=== PATIENT | male | born 1940 | race Caucasian/White ===

== ENCOUNTER 2017-08-01 13:12 | Outpatient (CLI) | payer MEDICARE ==
[2017-08-01 14:15] LABS: #Basophils 0.1 thou/uL (0.0-0.2); #Eosinphils 0.3 thou/uL (0.0-0.7); #Monocytes 0.5 thou/uL (0.11-0.59); #Neutrophils 3.8 thou/uL (1.40-6.50); %Basophils 1.4 % (0.0-1.0); %Eosinophils 4.5 % (0.0-10.0); %Lymphocytes 29.8 % (21.0-51.0); %Monocytes 7.2 % (0.0-10.0); Hematocrit 39.2 % (42.0-52.0); Mean Platelet Volume 7.9 fL (7.4-10.4); Red Blood Cell (RBC) Count 4.56 mill/uL (4.70-6.10); White Blood Cell (WBC) Count 6.7 thou/uL (4.8-10.8)
[2017-08-01 14:45] LABS: Anion Gap 14 mmol/L (10-20); BUN (Urea Nitrogen) 41 mg/dL (8.4-25.7); Calc. Creatinine Clearance 0 mL/min (70-130); Calcium 9.5 mg/dL (7.8-10.44); Carbon Dioxide 24 mmol/L (23-31); Chloride 105 mmol/L (98-107); Estimated GFR-MDRD 39
== END 2017-08-01 13:13 | disposition home or self-care (01) ==
LOC: LABBT 13:12
PROVIDERS: ATTEND Orthopaedic Surgery
DX: Z01.818 Encounter for other preprocedural examination (principal); G56.02 Carpal tunnel syndrome, left upper limb
CPT/HCPCS: 80048; 85025; 93005; 93010

== ENCOUNTER 2017-08-12 07:06 | Day surgery (SDC) | payer MEDICARE ==
[2017-08-01 13:33] VITALS: BMI 25.1
[2017-08-12] MEDS ORDERED: Clindamycin/D5W 600 mg/50 ml Premix Bag ONE (08:32)
[2017-08-12] MEDS ORDERED: Meperidine HCl/PF 25 MG/ML VIAL ONE (08:54)
[2017-08-12] MEDS ORDERED: Lidocaine 1% w/Epinephrine 1:200K 30 ML VIAL ONE (08:58)
[2017-08-12] MEDS ORDERED: ePHEDrine/0.9% NaCl/PF SYRINGE 50 mg/10 ml ONE ×2 (09:26→15:32)
[2017-08-12] MEDS ORDERED: EPINEPHrine 1 MG/10 ML Abboject SYRINGE ONE (09:26)
--- NOTE | 2017-08-12 09:34 | OP ---
PREOPERATIVE DIAGNOSIS: Carpal tunnel, left. POSTOPERATIVE DIAGNOSIS: Carpal tunnel, left. SURGEON: Kj Fernandez M.D. ANESTHESIA: TIVA local. BLOOD LOSS: Minimal. SPECIMEN: None. DRAINS: None. COMPLICATIONS: None. PROCEDURE IN DETAIL: After appropriate consent was obtained, the patient was taken to the operating room where TIVA anesthesia was induced. The arm was prepped and draped in the sterile fashion. The ar m was exsanguinated. The tourniquet was inflated to 250 mmHg. A longitudinal incision was made. Hem ostasis obtained. Dissection was carried down to the transverse carpal ligament. The transverse carpa l ligament was incised. Hemostat was placed deep in the transverse carpal ligament. The knife was use d to cut down unto the ligament and hemostat. Care was taken to protect the contents of the carpal ca nal. Attention was then turned proximally. Metzenbaum scissors were used to release the carpal ligame nt into the forearm fascia. The carpal tunnel was palpated. There were no masses. The tourniquet was released. Hemostasis was obtained. Copious irrigation performed. The skin was closed with 4-0 Nylon. A sterile dressing was applied and the patient was placed in a splint. There are no complications.
[2017-08-12] MEDS ORDERED: Metoprolol Tartrate 5 MG/5 ML VIAL ONE (15:32)
[2017-08-12] MEDS ORDERED: Propofol 200 MG/20 ML VIAL ONE (15:32)
[2017-08-12] MEDS ORDERED: Ondansetron HCl/PF 4 MG/2 ML Vial ONE (15:32)
== END 2017-08-12 10:20 | disposition home or self-care (01) ==
LOC: SDC 07:06
PROVIDERS: ATTEND Orthopaedic Surgery
PROC: 01N50ZZ Release Median Nerve, Open Approach (ICD-10-PCS; principal; 2017-08-12)
DX: G56.02 Carpal tunnel syndrome, left upper limb (principal); I25.10 Atherosclerotic heart disease of native coronary artery without angina pectoris; M19.90 Unspecified osteoarthritis, unspecified site; E78.00 Pure hypercholesterolemia, unspecified; I10 Essential (primary) hypertension; E11.9 Type 2 diabetes mellitus without complications; Z79.84 Long term (current) use of oral hypoglycemic drugs; Z79.1 Long term (current) use of non-steroidal anti-inflammatories (NSAID); Z79.899 Other long term (current) drug therapy; Z98.52 Vasectomy status; Z90.49 Acquired absence of other specified parts of digestive tract; Z98.890 Other specified postprocedural states; Z87.442 Personal history of urinary calculi; Z96.653 Presence of artificial knee joint, bilateral; Z88.1 Allergy status to other antibiotic agents
CPT/HCPCS: J0171; J2175; J2405; J2704; J3490

== ENCOUNTER 2018-08-10 20:22 | Inpatient (IN) | payer MEDICARE ==
[~2018-08-10 20:22] MED LIST: Iopamidol 370 76% 100 ML VIAL ONE
[2018-08-10] MEDS ORDERED: KETAMINE 100 MG/ML (5ML VIAL) ONE (20:30)
[2018-08-10] MEDS ORDERED: Lidocaine 1% w/Epinephrine 1:100K 20 ML VIAL ONE (20:33)
[2018-08-10] MEDS ORDERED: Ondansetron ODT 4 MG TAB PO PRN (20:55)
[2018-08-10] MEDS ORDERED: Ondansetron PF 4 MG/2 ML Vial IVP PRN (20:55)
[2018-08-10] MEDS ORDERED: Dextrose 50% Abboject 50 ML SYRINGE SLOW IVP PRN (20:55)
[2018-08-10] MEDS ORDERED: hydrALAZINE 20 MG/ML VIAL SLOW IVP PRN (20:55)
[2018-08-10] MEDS ORDERED: Dextrose 5% in Water 1,000 ML IV PRN (20:55)
[2018-08-10 21:00] LABS: #Basophils 0.1 thou/uL (0.0-0.2); #Eosinphils 0.1 thou/uL (0.0-0.7); #Lymphocytes 1.6 thou/uL (1.20-3.40); #Monocytes 0.8 thou/uL (0.11-0.59); #Neutrophils 9.7 thou/uL (1.40-6.50); %Basophils 0.5 % (0.0-1.0); %Eosinophils 0.9 % (0.0-10.0); %Lymphocytes 13.2 % (21.0-51.0); %Monocytes 6.6 % (0.0-10.0); %Neutrophils 78.8 % (42.0-75.0); Hemoglobin 13.6 g/dL (14.0-18.0); Mean Corpuscular HGB CONC 33.3 g/dL (32.0-36.0); Mean Corpuscular Hemoglobin 28.8 pg (27.0-31.0); Mean Corpuscular Volume 86.4 fL (78.0-98.0); Platelet Count 206 thou/uL (130-400); RBC Distribution Width 12.6 % (11.5-14.5); Red Blood Cell (RBC) Count 4.72 mill/uL (4.70-6.10); White Blood Cell (WBC) Count 12.3 thou/uL (4.8-10.8)
[2018-08-10] MEDS ORDERED: Rib Fracture Protocol PO SCH (21:00)
[2018-08-10 21:07] LABS: PTT 20.8 SEC (22.9-36.1); Prothrombin Time 13.6 SEC (12.0-14.7)
--- NOTE | 2018-08-10 21:12 | RAD ---
RADIOGRAPH CHEST 1 VIEW: Date: 08/10/18 Time: 8:31 p.m. HISTORY: 78-year-old male with chest pain and dyspnea following trauma. Dr. Da Silva is aware of the pneumothorax and is currently in the process of playing a chest tube. COMPARISON: 07/11/11. FINDINGS: There is a new finding of right apical pneumothorax occupying approximately 15-20% volume of the righ t hemithoracic cavity. The lungs are hypoinflated. There are small pulmonary densities in the right p erihilar region and at the right lateral base, probably representing mild atelectasis. There is anoth er new finding of subcutaneous emphysema in the right lateral chest wall. The left lung is clear. IMPRESSION: 1. Acute, traumatic, right apical pneumothorax. 2. Acute, traumatic, subcutaneous emphysema of the right chest wall. JN [] POS: [facility]
[2018-08-10 21:21] LABS: ALT (SGPT) 36 U/L (8-55); AST (SGOT) 50 U/L (5-34); Albumin 4.6 g/dL (3.4-4.8); Alkaline Phosphatase 71 U/L (40-150); Anion Gap 14 mmol/L (10-20); BUN (Urea Nitrogen) 51 mg/dL (8.4-25.7); Bilirubin, Total 0.8 mg/dL (0.2-1.2); Calc. Creatinine Clearance 0 mL/min (70-130); Calcium 9.6 mg/dL (7.8-10.44); Carbon Dioxide 23 mmol/L (23-31); Chloride 104 mmol/L (98-107); Estimated GFR-MDRD 34; Globulin 2.8 g/dL (2.4-3.5); Glucose 346 mg/dL (83-110); Lipase 57 U/L (8-78); Potassium 5.1 mmol/L (3.5-5.1); Protein, Total 7.4 g/dL (5.8-8.1); Sodium 136 mmol/L (136-145)
--- NOTE | 2018-08-10 21:24 | RAD ---
PORTABLE CHEST: 08/10/18 HISTORY: Post chest tube placement. COMPARISON: Earlier exam the same day. Heart size is enlarged. Right sided chest tube is in place. The right sided pneumothorax is almost co mpletely resolved. There appears to be a tiny apical pneumothorax remaining. The tip of the chest tub e is in the right lung apex. Subcutaneous emphysema noted. IMPRESSION: 1. Almost complete resolution of the right sided pneumothorax. 2. Cardiomegaly. POS: [facility]
--- NOTE | 2018-08-10 21:36 | CT ---
CT OF CHEST AND ABDOMEN PERFORMED WITH INTRAVENOUS CONTRAST: 08/10/18 HISTORY: Patient thrown against a cement truck into a metal pole. Pain on right side. The left lung shows subsegmental atelectatic change in the left base. The thoracic aorta is normal in caliber. No signs of any mediastinal hematoma. On the right side there is moderate subcutaneous emphysema. A right chest tube is present with the ti p in the right lung apex. There is still a small anterior pneumothorax present. There are right sided rib fractures with a right posterior 10th rib fracture near the costovertebral junction and a segmen brian posterior 9th rib fracture and lateral 8th rib fracture. CT OF ABDOMEN PERFORMED WITH CONTRAST ENHANCEMENT: The liver, spleen, and pancreas regions appear unremarkable. Gallbladder has been removed. Right and left adrenal glands are normal. There is an approximately 15 mm upper pole right renal calc ulus. This is nonobstructing. The kidneys show no signs of any injury. No free fluid seen in the abdo men. CT THORACIC SPINE WITH CONTRAST: Marked arthritic changes are seen. No compression fractures. IMPRESSION: Right 8th, 9th and 10th rib fractures. A small residual right pneumothorax is seen with a right chest tube in place. Moderate atelectatic changes are seen in the right lung base. The findings telephoned to Dr. Da Silva at 2120 hours. POS: [facility]
[2018-08-10] MEDS: Famotidine 20 MG TAB PO SCH (22:56)
[2018-08-10] MEDS: Sodium Chloride 0.9% 1,000 ML IV SCH (22:58)
[2018-08-10 23:17] VITALS: BMI 25.8
[2018-08-10] MEDS ORDERED: Cyclobenzaprine 10 MG TAB PO PRN (23:30)
[2018-08-10] MEDS: traMADol HCl 50 MG TAB PO SCH (23:37)
[2018-08-11] MEDS: traMADol HCl 50 MG TAB PO SCH ×4 (02:15→17:12)
[2018-08-11] MEDS: Ibuprofen 600 MG TAB PO SCH ×3 (05:36→21:35)
[2018-08-11 06:09] LABS: #Eosinphils 0.1 thou/uL (0.0-0.7); #Lymphocytes 1.1 thou/uL (1.20-3.40); #Monocytes 0.6 thou/uL (0.11-0.59); #Neutrophils 7.1 thou/uL (1.40-6.50); %Basophils 0.1 % (0.0-1.0); %Eosinophils 0.7 % (0.0-10.0); %Lymphocytes 12.3 % (21.0-51.0); %Monocytes 7.1 % (0.0-10.0); %Neutrophils 79.8 % (42.0-75.0); Hemoglobin 10.9 g/dL (14.0-18.0); Mean Corpuscular HGB CONC 33.1 g/dL (32.0-36.0); Mean Corpuscular Hemoglobin 28.5 pg (27.0-31.0); Mean Corpuscular Volume 86.2 fL (78.0-98.0); Mean Platelet Volume 8.8 fL (7.4-10.4); Platelet Count 160 thou/uL (130-400); RBC Distribution Width 12.6 % (11.5-14.5); Red Blood Cell (RBC) Count 3.83 mill/uL (4.70-6.10); White Blood Cell (WBC) Count 8.9 thou/uL (4.8-10.8)
[2018-08-11 06:29] LABS: Anion Gap 13 mmol/L (10-20); BUN (Urea Nitrogen) 44 mg/dL (8.4-25.7); Calc. Creatinine Clearance 42 mL/min (70-130); Carbon Dioxide 23 mmol/L (23-31); Chloride 106 mmol/L (98-107); Estimated GFR-MDRD 43; Glucose 313 mg/dL (83-110); Magnesium 2.2 mg/dL (1.6-2.6); Phosphorus 3.3 mg/dL (2.3-4.7); Potassium 4.7 mmol/L (3.5-5.1)
[2018-08-11 06:43] LABS: Sodium 137 mmol/L (136-145)
--- NOTE | 2018-08-11 07:44 | HP ---
TRAUMA SURGEON: Izaiah easton MD TRAUMA ACTIVATION: Level II. HISTORY OF PRESENT ILLNESS: Mr. Isaac Ferro is a 78-year-old gentleman, who presented to [place] [facility] status post blunt force trauma to the back and chest. 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 His shovel got caught causing him to be slammed up against metal pole. This happened the morning prior to his presentation in the emergency room. The patient had increasing shortness of breath, cough, and right-sided back pain, therefore he came to the emergency room. He was seen and evaluated in the emergency room and found to have multiple right-sided rib fractures, evidence of a flail chest with a hemopneumothorax. A chest tube was placed by the emergency room physician. There was good re-expansion of the lung. Trauma Service was asked to admit. Per my evaluation, the patient has a chief complaint of right shoulder and back pain, rated as a 5/10. This has improved from a 10/10. ALLERGIES: CEFTIN. HOME MEDICATIONS: Include, 1. Lisinopril 10 mg p.o. daily. 2. Meloxicam 15 mg p.r.n. 3. Glimepiride 2 mg q.a.m. and 4 mg nightly. CHRONIC MEDICAL ILLNESSES: 1. Diabetes. 2. Hyperlipidemia. 3. Hypertension. PAST SURGICAL HISTORY: The patient has a history of bilateral knee replacements, left shoulder rotator cuff repair, and right carotid endarterectomy. SOCIAL HISTORY: The patient lives at home with his . 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 Endorses occasional alcohol use. Denies tobacco or illicit drug use. FAMILY HISTORY: Significant for father with metastatic lung cancer. REVIEW OF SYSTEMS: A 10-point review of systems was performed and negative except as indicated in the HPI. PHYSICAL EXAMINATION: VITAL SIGNS: On evaluation include heart rate 76, O2 saturation 97% on 3 L nasal cannula, respiratory rate 22, blood pressure 150/80. GENERAL: An elderly-appearing male, in no acute distress, resting in bed. HEENT: Head, normocephalic and atraumatic. Eyes, pupils are PERRL. Extraocular movements are intact. NECK: Supple. Trachea is midline. There is no midline tenderness to palpation. CHEST: Normal work of breathing. Symmetric rise. There is tenderness to palpation of the right lateral chest. LUNGS: Clear to auscultation bilaterally. CARDIOVASCULAR: Regular rate and rhythm. No obvious, murmurs, rubs or gallops. GI: Abdomen is soft, nontender, and nondistended. MUSCULOSKELETAL: Moves all extremities x4. Full range of motion in all 4 extremities. Pulses are 2+ bilaterally. NEUROLOGIC: GCS is 15. No focal deficit is noted. LABORATORY FINDINGS: WBC 12.3, hemoglobin 13.6, hematocrit 40.7, and platelet count 206. INR 1.0. Sodium 136, potassium 5.1, chloride 104, carbon dioxide 23, BUN 51, creatinine 1.90, and glucose 346. AST 50, ALT 36. Troponin 0.012. RADIOGRAPHIC FINDINGS: X-ray of the chest was significant for apical pneumothorax. Post chest tube x-ray demonstrated proper placement of the chest tube with resolution of the pneumothorax. CT of the chest was significant for right 8th, 9th, and 10th posterolateral rib fractures. ASSESSMENT: 1. Status post blunt force trauma to the back and chest. 2. Right 8th, 9th, and 10th rib fractures. 3. Right hemopneumothorax. 4. Acute respiratory insufficiency secondary to above. 5. Acute traumatic pain. 6. History of diabetes with hyperglycemia. 7. History of hypertension. PLAN: Admit to Trauma Services. Pain control via rib fracture protocol PO pathway. Chest tube placed to suction overnight. A.m. chest x-ray. Encouraging mobility and ambulation. Per the patient, he gets significantly constipated with the use of narcotic pain medications, we will add bowel regimen as this time. Sliding scale insulin until the patient is taking good p.o. intake. Plan for admission was discussed with the patient and family at bedside and all questions were answered at the time of this dictation. Trauma attending has been notified of admission. Job ID: [id number]
--- NOTE | 2018-08-11 09:04 | RAD ---
SEMI UPRIGHT PORTABLE CHEST ONE VIEW: History: 78-year-old male with history of pneumothorax, rib fracture. Follow up. FINDINGS: Right sided chest tube in place. Very small residual right sided pneumothorax with some subcutaneous emphysema on the right side. Mild cardiomegaly. Stable left chest. Left costophrenic angle blunting s uggesting small left pleural effusion. Arthrosis changes both shoulders. Subtle displaced right rib f ractures. IMPRESSION: Small stable right sided pneumothorax with right chest tube in place. Right sided subcutaneous emphys char. Atherosclerosis of the aorta. Small pleural effusions. POS: [facility]
[2018-08-11] MEDS ORDERED: HumaLOG 300 UNITS/3 ML VIAL SC PRN (09:26)
[2018-08-11] MEDS ORDERED: Dextrose 5% in Water 1,000 ML IV PRN (09:26)
[2018-08-11] MEDS ORDERED: Dextrose 50% Abboject 50 ML SYRINGE SLOW IVP PRN (09:26)
[2018-08-11] MEDS: Gabapentin 100 MG CAP PO SCH ×3 (09:33→21:34)
[2018-08-11] MEDS: HumaLOG 300 UNITS/3 ML VIAL SC PRN ×3 (09:33→17:13)
[2018-08-11] MEDS: Polyethylene Glycol 3350 17 GM Packet PO SCH (09:33)
[2018-08-11] MEDS: Famotidine 20 MG TAB PO SCH ×2 (09:33→21:34)
[2018-08-11] MEDS: Senokot S 8.6-50 MG TAB PO SCH ×2 (09:33→21:34)
[2018-08-11] MEDS: Enoxaparin Sodium 40 MG/0.4 ML SYRINGE SC SCH (09:33)
[2018-08-11] MEDS: Acetaminophen 500 MG TAB PO SCH ×2 (11:48→17:12)
[2018-08-11] MEDS: Sodium Chloride 0.9% 1,000 ML IV SCH (12:02)
--- NOTE | 2018-08-11 13:34 | HP ---
CHIEF COMPLAINT: Chest pain, right side. 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 He says, he put in a paddle to try and mix the gravel when it got caught and hit him, flinging him to his right side against a rigid metal fence and sustained severe right chest pain. Denies any abdominal pain. No dyspnea. No loss of consciousness. No head pain. No neurologic symptoms. PAST MEDICAL HISTORY: 1. Diabetes. 2. Hypertension. 3. Hyperlipidemia. PAST SURGICAL HISTORY: 1. Bilateral total knee. 2. Left shoulder surgery. 3. Right carotid endarterectomy. 4. Open cholecystectomy. MEDICATIONS: 1. Lisinopril. 2. Meloxicam. 3. Glyburide. 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 FAMILY HISTORY: Lung cancer. ALLERGIES: HE HAS AN ALLERGY TO CEFUROXIME AXETIL. PHYSICAL EXAMINATION: VITAL SIGNS: Temperature 98.2, pulse 69, and blood pressure 148/67. GENERAL: He is awake and alert, in no apparent distress. HEENT: He has his glasses on and he is watching a football game, reading the newspaper. He wears glasses. Pupils equal, round, reactive. Extraocular movement intact. Pharynx clear. Good dentition. NECK: Supple. No thyroid masses. Trachea midline. No tenderness. CHEST: He has a chest tube in right chest. LUNGS: Clear. ABDOMEN: Soft and nondistended. He has well-healed surgical scar, right subcostal. EXTREMITIES: Unremarkable. LABORATORY DATA: His white count is 8.9, H and H 10 and 33, and platelet count 160. Electrolytes show an elevated glucose at 313. Chest x-ray shows pneumothorax with subcutaneous emphysema. CT shows right 8, 9, and 10 rib fractures and right pneumo. ASSESSMENT: Multiple rib fractures with pneumothorax. PLAN: Suction. Serial x-rays. Sliding scale for sugars. Job ID: [id number]
--- NOTE | 2018-08-11 17:48 | PRG ---
DATE OF SERVICE: 08/11/2018 SUBJECTIVE: Isaac Ferro is doing well. He has no complaints. He is ambulating in the hallways. OBJECTIVE: VITAL SIGNS: Heart rate 68, respirations 20, and blood pressure 150/72. LUNGS: Clear to auscultation. CARDIAC: Regular rate and rhythm without murmur or gallop. ABDOMEN: Soft and nontender. Chest x-ray reveals resolved pneumothorax. No significant pneumothorax. IMAGING STUDIES: Chest x-ray this morning as above. ASSESSMENT AND PLAN: Right hemopneumothorax. Continue to thoracostomy water-seal. PLAN: Removal if his chest x-ray looks good tomorrow. I anticipate discharge home later tomorrow. Job ID: [id number]
[2018-08-11] MEDS ORDERED: Glimepiride 1 MG TAB PO SCH (21:00)
[2018-08-11] MEDS: Atorvastatin Calcium 20 MG TAB PO SCH (21:34)
[2018-08-11] MEDS: Glimepiride 4 MG TAB PO SCH (21:34)
[2018-08-12] MEDS: Acetaminophen 500 MG TAB PO SCH ×4 (00:47→17:36)
[2018-08-12] MEDS: traMADol HCl 50 MG TAB PO SCH ×4 (00:48→17:36)
[2018-08-12] MEDS: Sodium Chloride 0.9% 1,000 ML IV SCH ×2 (00:49→14:22)
[2018-08-12 06:25] LABS: #Eosinphils 0.5 thou/uL (0.0-0.7); #Monocytes 0.6 thou/uL (0.11-0.59); #Neutrophils 4.4 thou/uL (1.40-6.50); %Basophils 0.4 % (0.0-1.0); %Eosinophils 6.4 % (0.0-10.0); %Lymphocytes 26.9 % (21.0-51.0); %Monocytes 8.1 % (0.0-10.0); %Neutrophils 58.1 % (42.0-75.0); Hemoglobin 10.4 g/dL (14.0-18.0); Mean Corpuscular Hemoglobin 28.8 pg (27.0-31.0); Mean Corpuscular Volume 87.3 fL (78.0-98.0); Mean Platelet Volume 8.7 fL (7.4-10.4); Platelet Count 156 thou/uL (130-400); RBC Distribution Width 12.6 % (11.5-14.5); Red Blood Cell (RBC) Count 3.62 mill/uL (4.70-6.10); White Blood Cell (WBC) Count 7.5 thou/uL (4.8-10.8)
[2018-08-12] MEDS: Ibuprofen 600 MG TAB PO SCH ×3 (06:36→20:55)
[2018-08-12 07:03] LABS: Anion Gap 12 mmol/L (10-20); BUN (Urea Nitrogen) 46 mg/dL (8.4-25.7); Calc. Creatinine Clearance 35 mL/min (70-130); Calcium 8.8 mg/dL (7.8-10.44); Carbon Dioxide 22 mmol/L (23-31); Chloride 107 mmol/L (98-107); Estimated GFR-MDRD 35; Glucose 83 mg/dL (83-110); Magnesium 2.6 mg/dL (1.6-2.6); Phosphorus 4.6 mg/dL (2.3-4.7); Potassium 4.5 mmol/L (3.5-5.1); Sodium 136 mmol/L (136-145)
--- NOTE | 2018-08-12 08:04 | RAD ---
PORTABLE CHEST: DATE: 08/12/2018. PROVIDED CLINICAL HISTORY: Pneumothorax. FINDINGS: Comparison 08/11/2018. Cardiac and mediastinal silhouette is unchanged in appearance. Right-sided ch est tube is redemonstrated in similar position. Residual pneumothorax is not definite seen on today' s study, though the right lung apex is somewhat obscured by overlying soft tissues. The lungs appear grossly clear. IMPRESSION: No definite residual pneumothorax is evident with limitations as above. POS: [facility]
[2018-08-12] MEDS: Polyethylene Glycol 3350 17 GM Packet PO SCH (09:19)
[2018-08-12] MEDS: Glimepiride 4 MG TAB PO SCH ×2 (09:19→20:55)
[2018-08-12] MEDS: Senokot S 8.6-50 MG TAB PO SCH ×2 (09:19→20:55)
[2018-08-12] MEDS: Gabapentin 100 MG CAP PO SCH ×3 (09:20→20:55)
[2018-08-12] MEDS: Enoxaparin Sodium 40 MG/0.4 ML SYRINGE SC SCH (09:20)
[2018-08-12] MEDS: Famotidine 20 MG TAB PO SCH ×2 (09:20→20:55)
--- NOTE | 2018-08-12 12:59 | PRG ---
DATE OF SERVICE: SUBJECTIVE: Mr. Ferro is awake and alert, resting comfortably in bed. Has been up and walking around. He has no complaints at this time. Reports pain has been controlled. No events overnight. Reports his appetite has been good. Reports, he still has not had a bowel movement. He continues to use his incentive spirometer, able to deep breathe and cough. OBJECTIVE: VITAL SIGNS: Blood pressure 123/67, temp 98.7, pulse 64, respirations 18, SpO2 94% on room air. GENERAL: The patient is awake and alert, no distress. RESPIRATORY: The patient has equal chest rise and fall. No cyanosis. No tachypnea. CARDIOVASCULAR: No edema. Regular rate and rhythm. NEUROLOGIC: No acute focal deficits. LABORATORY DATA: WBC 7.5, RBC 3.62, hemoglobin 10.4, hematocrit 31.6. Sodium 136, potassium 4.5, chloride 107, CO2 22, BUN 46, creatinine 1.89, glucose 182. Chest x-ray reveals resolved pneumothorax, no significant pneumothorax. ASSESSMENT: 1. Right resolved hemopneumothorax with chest tube to water seal. 2. Acute traumatic pain. PLAN: We will remove his chest tube today. Anticipate discharge home in the morning. We will repeat a chest x-ray tomorrow morning before we discharge him home. Continue use of IS. Continue bowel regimen as the patient has not had a bowel movement yet. Encourage to get up and ambulate. Continue pain management. Continue physical therapy. Plan has been discussed with the admitting surgeon. Job ID: [id number] MTDD
[2018-08-12] MEDS: Atorvastatin Calcium 20 MG TAB PO SCH (20:54)
[2018-08-13] MEDS: HumaLOG 300 UNITS/3 ML VIAL SC PRN (00:04)
[2018-08-13] MEDS: traMADol HCl 50 MG TAB PO SCH ×2 (00:06→06:16)
[2018-08-13] MEDS: Acetaminophen 500 MG TAB PO SCH ×2 (00:06→06:15)
[2018-08-13] MEDS: Sodium Chloride 0.9% 1,000 ML IV SCH (04:29)
[2018-08-13] MEDS: Ibuprofen 600 MG TAB PO SCH (06:16)
--- NOTE | 2018-08-13 07:58 | RAD ---
PORTABLE CHEST: DATE: 08/13/2018. PROVIDED CLINICAL HISTORY: Pneumothorax. FINDINGS: Comparison is made with the study dated 08/12/2018. Interval removal of right-sided chest tube. No e vidence for residual pneumothorax. Nonspecific airspace disease right mid lung zone. Subcutaneous e mphysema. Cardiomegaly. No evidence for pleural fluid. IMPRESSION: 1. Interval right-sided chest tube removal without evidence for residual pneumothorax. 2. Patchy right mid lung zone airspace disease. Followup recommended. POS: [facility]
[2018-08-13] MEDS: Famotidine 20 MG TAB PO SCH (08:20)
[2018-08-13] MEDS: Glimepiride 4 MG TAB PO SCH (08:21)
[2018-08-13] MEDS: Gabapentin 100 MG CAP PO SCH (08:22)
[2018-08-13] MEDS: Enoxaparin Sodium 40 MG/0.4 ML SYRINGE SC SCH (08:22)
[2018-08-13] MEDS: Polyethylene Glycol 3350 17 GM Packet PO SCH (08:23)
[2018-08-13] MEDS: Senokot S 8.6-50 MG TAB PO SCH (08:23)
[2018-08-13 10:57] VITALS: BP 137/71; TEMP 98.9
--- NOTE | 2018-08-15 00:08 | DIS ---
DATE OF ADMISSION: 08/10/2018 DATE OF DISCHARGE: 08/13/2018 DISCHARGE ATTENDING: Andrew Rodas MD CONSULTS: There were no consults. PROCEDURES: 1. Chest CT on 08/10/2018, impression, right 8th, 9th, and 10th rib fractures. A small residual right pneumothorax seen with a right chest tube in place. Moderate atelectatic changes are seen in the right lung base. 2. CT of thoracic spine with contrast, marked arthritic changes are seen. No compression fractures. 3. CT of abdomen, the liver, spleen, and pancreas regions appear unremarkable. 4. Chest x-ray on 08/10 prior to chest tube placement showed an acute traumatic right apical pneumothorax, acute traumatic subcutaneous emphysema of the right chest wall. 5. Repeat chest x-ray on 08/11/2018, impression, small stable right-sided pneumothorax with right chest tube in place, right-sided subcutaneous emphysema with small pleural effusions. 6. Chest x-ray on 08/12/2018, impression, no definite residual pneumothorax is evident. 7. Repeat chest x-ray on 08/13/2018, right-sided chest tube removed without evidence of residual pneumothorax, patchy right mid lung zone airspace disease. PRIMARY DIAGNOSES: 1. Traumatic hemopneumothorax. 2. Multiple right rib fractures. SECONDARY DIAGNOSES: 1. Diabetes. 2. Hyperlipidemia. 3. Hypertension. ALLERGIES: CEFTIN. HOME MEDICATIONS: Include; 1. Lisinopril 10 mg p.o. daily. 2. Meloxicam 15 mg p.r.n. 3. Glimepiride 2 mg q.a.m. and 4 mg nightly. PAST MEDICAL HISTORY: Hypertension, Type 2 diabetes, Hyperlipidemia. PAST SURGICAL HISTORY: Bilateral knee replacement, Left shoulder rotator cuff repair, and Right carotid endarterectomy. FAMILY HISTORY: Significant for father with metastatic lung cancer. SOCIAL HISTORY: The patient lives at home with his . 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 Occasional alcohol use. Denies tobacco or illicit drug use. DISCHARGE MEDICATIONS: 1. Tylenol 1000 mg p.o. q.6 hours. 2. Glimepiride 1 mg tablet p.o. at bedtime. 3. Atorvastatin calcium 20 mg p.o. q.p.m. 4. Lisinopril 10 mg p.o. daily. 5. Meloxicam 15 mg tablet daily. 6. Tramadol 100 mg p.o. q 6 hours for pain There were no home medications that were discontinued. HISTORY OF PRESENT ILLNESS AND HOSPITAL COURSE: A 78-year-old gentleman, who initially presented to the emergency room status post blunt force trauma to the back and chest. 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 His shovel got caught causing him to be slammed up against a metal pole. The patient was evaluated in the emergency room and was found to have multiple rib fractures and evidence of a flail chest with a hemopneumothorax. A chest tube was placed in the emergency room with good re-expansion of the lung. Trauma service was asked to admit. The patient ambulated the hallways without any difficulty, used his incentive spirometer without any difficulty. The patient's vital signs remained stable throughout the hospital stay and the day of discharge. There was no evidence of residual pneumo on his chest x-ray. The patient's pain was well controlled. The patient did have a bowel movement yesterday. When the pt was lying in bed initially on exam he had some faint audible expiratory wheezing sounds which resolved after sitting up. When asked about this the patient said that is normal for him sometimes a it occasionally happens every once in a while, and he is able to take a throat lozenge and it resolves. The patient was in no distress. The patient denied any pain or shortness of breath. The patient denied any cough at this time. Vital sign were stable. The patient was deemed stable for discharge. DISPOSITION: Stable. DISCHARGE INSTRUCTIONS: Location: Discharged home. Diet: Diabetic diet. Activity: No heavy lifting. Activity as tolerated. FOLLOWUP: Follow up with trauma clinic, Dr. Mccullough, in 14 days. Chest x-ray to be obtained prior to appointment. Call the clinic to arrange an appointment time. The patient was discussed with the attending surgeon. Job ID: [id number] [facility]
--- NOTE | 2018-08-17 16:19 | PQF ---
INDU BUSH RAMONA PA [id number] [facility] B- [id number] CLINICAL DOCUMENTATION CLARIFICATION FORM: POST DISCHARGE Addendum to original discharge summary date: ____ Late entry note date: __ DATE: 08/17/18 ATTN: DR. ORTEGA Please exercise your independent, professional judgment in responding to the clarification form. Clinical indicators are provided on the bottom of this form for your review Please check appropriate box(s): [ ] Acute Respiratory Failure: [ ] with Hypoxia[ ] with Hypercapnia [ ] Acute On Chronic Respiratory Failure: [ ] with Hypoxia [ ] with Hypercapnia [ ] Acute Respiratory Failure due to: (etiology) [X ] Other diagnosis _Acute respiratory insufficiency (unable to determine if failure at the time of admission as there were no documented sats off O2) [ ] Unable to determine In addition, please specify: Present on Admission (POA): [ X ] Yes [ ] No [ ] Unable to determine For continuity of documentation, please document condition throughout progress notes and discharge summary. Thank You. CLINICAL INDICATORS - SIGNS / SYMPTOMS / LABS: 08/10 ER report - Vitals: Resp rate: 24 (labored), O2 sat: 95 on 2L Oxygen 08/10 H&P - Vitals: Resp rate: 22, O2 saturation 97% on 3L nasal cannula 08/10 H&P - Acute respiratory insufficiency RISK FACTORS: Chest trauma Multiple rib fractures TREATMENTS: 08/10 - Chest XR Incentive spirometer Oxygen (This form is maintained as a part of the permanent medical record) 2014 [employer]. All Rights Reserved [place], NELDA, [facility] [email or web address] [phone] CHRISTOPHER
== END 2018-08-13 12:40 | disposition home or self-care (01) | DRG 199 ==
LOC: ERS 20:22 → SURG B 20:55
PROVIDERS: ADMIT Surgery; ATTEND Surgery
PROC: 0W9930Z Drainage of Right Pleural Cavity with Drainage Device, Percutaneous Approach (ICD-10-PCS; principal; 2018-08-10)
DX: S27.2XXA Traumatic hemopneumothorax, initial encounter (principal); S22.5XXA Flail chest, initial encounter for closed fracture; W22.8XXA Striking against or struck by other objects, initial encounter; Y92.79 Other farm location as the place of occurrence of the external cause; I10 Essential (primary) hypertension; E11.9 Type 2 diabetes mellitus without complications; E78.5 Hyperlipidemia, unspecified; Z23 Encounter for immunization; R06.89 Other abnormalities of breathing
CPT/HCPCS: 32551; 36415; 36416; 71045; 71260; 80048; 80053; 83690; 83735; 84100; 84484; 85025; 85610; 85730; 86850; 86900; 86901; 90471; 90662; 94640; 99152; 99292; G0008; G8978-GP-CJ; G8979-GP-CJ; G8980-GP-CJ; G8987-GO-CI; G8988-GO-CI; G8989-GO-CI; J1650; J2001; J2405; J7620; Q0162

== ENCOUNTER 2018-08-13 18:06 | Inpatient (IN) | payer MEDICARE ==
--- NOTE | 2018-08-13 19:45 | RAD ---
PA AND LATERAL CHEST X-RAY: 08/13/2018 HISTORY: Persistent coughing. Patient with a history of broken right-sided ribs and pneumothorax. COMPARISON: 08/13/2018 at 0453 hours. FINDINGS: Again noted is subcutaneous emphysema along the right lateral chest and in the supraclavicular region . Surgical clips again overly the right aspect of the neck and the right upper quadrant. Posterior right-sided rib fractures are again seen. Again noted is volume loss involving the right h emithorax, with mild elevation of the right hemidiaphragm. There has been a mild increase in the ple ural and parenchymal changes at the right lung base compared to the prior study, which may represent small right pleural effusion and worsening atelectasis. Minimal atelectasis is present at the left l beth base. The left lung is otherwise clear. No pneumothorax is visualized on this exam. 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 IMPRESSION: 1. Small right pleural effusion and greater degree of atelectasis at the right lung base, compared t o prior study. No pneumothorax is appreciated. 2. Stable right-sided rib fractures. 3. Subcutaneous emphysema along the right chest and right supraclavicular region. POS: [facility]
[2018-08-13] MEDS ORDERED: Albuterol Sulfate 2.5 mg/3 ml Neb ONE (20:57)
[2018-08-13 21:13] LABS: #Lymphocytes 0.8 thou/uL (1.20-3.40); #Monocytes 0.4 thou/uL (0.11-0.59); #Neutrophils 15.6 thou/uL (1.40-6.50); %Basophils 0.2 % (0.0-1.0); %Eosinophils 0.1 % (0.0-10.0); %Lymphocytes 4.5 % (21.0-51.0); %Monocytes 2.4 % (0.0-10.0); %Neutrophils 92.8 % (42.0-75.0); Hemoglobin 12.7 g/dL (14.0-18.0); Mean Corpuscular Hemoglobin 28.8 pg (27.0-31.0); Mean Corpuscular Volume 87.3 fL (78.0-98.0); Mean Platelet Volume 8.4 fL (7.4-10.4); Platelet Count 202 thou/uL (130-400); RBC Distribution Width 12.6 % (11.5-14.5); Red Blood Cell (RBC) Count 4.42 mill/uL (4.70-6.10); White Blood Cell (WBC) Count 16.8 thou/uL (4.8-10.8)
[2018-08-13 21:32] LABS: ALT (SGPT) 40 U/L (8-55); AST (SGOT) 28 U/L (5-34); Alkaline Phosphatase 62 U/L (40-150); Anion Gap 15 mmol/L (10-20); BUN (Urea Nitrogen) 46 mg/dL (8.4-25.7); Bilirubin, Total 0.6 mg/dL (0.2-1.2); Calc. Creatinine Clearance 0 mL/min (70-130); Calcium 9.4 mg/dL (7.8-10.44); Carbon Dioxide 22 mmol/L (23-31); Chloride 100 mmol/L (98-107); Estimated GFR-MDRD 33; Globulin 2.9 g/dL (2.4-3.5); Glucose 198 mg/dL (83-110); Potassium 5.8 mmol/L (3.5-5.1); Protein, Total 6.9 g/dL (5.8-8.1); Sodium 131 mmol/L (136-145)
[2018-08-13] MEDS ORDERED: Dextrose 5% in Water 1,000 ML IV PRN (21:59)
[2018-08-13] MEDS ORDERED: Dextrose 50% Abboject 50 ML SYRINGE SLOW IVP PRN (21:59)
[2018-08-13] MEDS ORDERED: hydrALAZINE 20 MG/ML VIAL SLOW IVP PRN (21:59)
[2018-08-13] MEDS ORDERED: Ondansetron PF 4 MG/2 ML Vial IVP PRN (21:59)
[2018-08-13] MEDS ORDERED: Ondansetron ODT 4 MG TAB PO PRN (21:59)
[2018-08-13] MEDS ORDERED: Rib Fracture Protocol PO SCH (22:00)
[2018-08-13] MEDS ORDERED: Morphine 2 MG/ML SYRINGE ONE ×2 (22:11→22:14)
[2018-08-13] MEDS ORDERED: Ondansetron PF 4 MG/2 ML Vial ONE ×2 (22:11→22:12)
[2018-08-13 22:19] LABS: Actual Bicarbonate (HCO3a) 17.6 mEq/L (22-28); Analyzer IN Cardio ER; Base Excess (BEa) -7.5 mEq/L (-2.0 to +3.0); CO2 Tension 34.3 mmHg (35.0-45.0); Calcium, Ionized 1.12 mmol/L (1.12-1.30); Carboxyhemoglobin (COHb) 0.4 gm% (0.0-3.0); Hemoglobin (Hb) 12.1 g/dL (14.0-18.0); Potassium - ABG Lab 4.62 mmol/L (3.70-5.30); pH, Arterial 7.33 (7.35-7.45)
[2018-08-13] MEDS ORDERED: Morphine 2 MG/ML SYRINGE SLOW IVP PRN (22:19)
[2018-08-13 22:23] LABS: ALV-art Gradient 51.255 (0-20); O2 Tension (PaO2) 55.6 mmHg (> 70.0); Puncture Site RRA
[2018-08-13] MEDS ORDERED: Cyclobenzaprine 10 MG TAB PO PRN (22:45)
[2018-08-13] MEDS ORDERED: Fentanyl 100 MCG/2 ML VIAL ONE (23:41)
[2018-08-14] MEDS ORDERED: Sodium Chloride 0.9% 1,000 ML IV SCH ×2 (00:45→12:45)
[2018-08-14] MEDS: Acetaminophen 500 MG TAB PO SCH ×5 (01:27→23:35)
[2018-08-14] MEDS: traMADol HCl 50 MG TAB PO SCH ×5 (01:27→23:35)
--- NOTE | 2018-08-14 01:27 | HP ---
HISTORY OF PRESENT ILLNESS: Mr. Ferro is a 78-year-old gentleman who was initially admitted on 08/10/2018 to Trauma Services status post traumatic hemo-pneumo with a chest tube placement to the right chest. Chest tube was removed yesterday and the patient was evaluated overnight and repeat chest x-ray revealed no hemo- pneumothorax. The patient was stable upon discharge and had been ambulating around the halls with pain well controlled. Shortly after going home, the patient started to coughing and wheezing which became worse throughout the day. Also his pain had increased as the coughing progressed which limited him to ambulating like he was previously. The patient also reports yellow productive sputum. His was concerned and brought him to the ER. He was evaluated by Dr. Farias who contacted Trauma Services to readmit the patient. The patient was started on Neb treatments with some improvement. PAST MEDICAL HISTORY: 1. Diabetes. 2. Hypertension. 3. Hyperlipidemia. PAST SURGICAL HISTORY: 1. Bilateral total knee. 2. Left shoulder surgery. 3. Right carotid endarterectomy. 4. Open cholecystectomy. MEDICATIONS: 1. Lisinopril. 2. Meloxicam. 3. Glyburide. 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 FAMILY HISTORY: Lung cancer. ALLERGIES: TO CEFUROXIME AXETIL. PHYSICAL EXAMINATION: VITAL SIGNS: Heart rate 114, temperature 100.7, respirations 28, and blood pressure 140/86. Sp02 92% on RA GENERAL: The patient is awake and alert, in mild respiratory distress with subclavicular retractions and mild expiratory wheezing. HEENT: Mucous membranes are dry, lips dry CARDIOVASCULAR: Sinus tachycardia. Regular rate and rhythm. No murmur. No pedal edema. RESPIRATORY: Slightly labored respirations, equal chest rise. Audible expiratory wheezing ABDOMEN: Slightly distended, soft, non tender. LABORATORY DATA: WBC 16.8, RBC 4.42, hemoglobin 12.7, hematocrit 38.6, neutrophils 92.8. ABGs; pH 7.33, PCO2 of 34.3, PO2 of 55.6, potassium on the ABG is 4.62. Chemistries; sodium 131, potassium 5.8, chloride 100, CO2 of 22, BUN 46, creatinine 1.96, glucose 198, calcium 9.4, AST 28, ALT 40, alkaline phosphatase 62, BNP 72.2, total protein 6.9, albumin 4.0, globulin 2.9, albumin 1.4. DIAGNOSTIC STUDIES: Chest x-ray; impression: 1. Small pleural effusion and greater degree of atelectasis at the right lung base compared to the prior x-ray this morning. No pneumothorax. 2. Stable right-sided rib fractures. 3. Subcutaneous emphysema along the right chest and right supraclavicular region. ASSESSMENT: 1. Status post traumatic hemopneumothorax. 2. Multiple rib fractures. 3. Acute chronic pain. 4. Possible hospital-acquired pneumonia. 5. Hyponatremia PLAN: We will admit the patient to the OBS Unit. Consult Pulmonology. Place the patient on a PO rib protocol to control his pain. Encourage incentive spirometer. We will place the patient on an insulin sliding scale to control his blood sugar. The patient will be on q.4 nebulizer treatments. We will start empiric antibiotics, pharmacist to help with dosing of the antibiotics due to the patient's chronic renal failure and a GFR of 30. He appears dry, so we will start the patient on a low rate maintenance IVF fluid. Consider CT chest if no improvement overnight. Repeat CXR and labs in am. This patient was discussed with the attending surgeon. Job ID: [id number] CHRISTOPHER
[2018-08-14] MEDS: Piperacillin/Tazobactam 3.375 GM in Sodium Chloride 0.9% 100 ML IVPB SCH ×5 (01:28→23:26)
[2018-08-14] MEDS ORDERED: Vancomycin HCl 1 GM in Premix Bag 1 BAG IVPB SCH (02:00)
[2018-08-14 03:33] LABS: Bilirubin Negative (Negative); Blood, Urine Negative (Negative); Clarity CLOUDY (Clear); Glucose, Urine (Dipstick) 100 mg/dL (Negative); Leukocyte Negative (Negative); Nitrite Negative (Negative); Protein, Urine (Dipstick) Trace mg/dL (Neg-Trace); Specific Gravity, Urine 1.023 (1.002-1.036); Urobilinogen 0.2 mg/dL (0.2-1.0)
[2018-08-14 03:50] VITALS: BMI 26.0
[2018-08-14] MEDS ORDERED: Ibuprofen 600 MG TAB PO SCH (06:00)
[2018-08-14 06:13] LABS: Anion Gap 15 mmol/L (10-20); BUN (Urea Nitrogen) 47 mg/dL (8.4-25.7); Calc. Creatinine Clearance 30 mL/min (70-130); Calcium 8.4 mg/dL (7.8-10.44); Carbon Dioxide 19 mmol/L (23-31); Chloride 98 mmol/L (98-107); Estimated GFR-MDRD 29; Glucose 314 mg/dL (83-110); Potassium 5.5 mmol/L (3.5-5.1); Sodium 126 mmol/L (136-145)
[2018-08-14 06:21] LABS: Band 28 % (5-11); Hemoglobin 10.5 g/dL (14.0-18.0); Lymphocytes 3 % (21-51); MDiff Complete? YES; Mean Corpuscular HGB CONC 32.8 g/dL (32.0-36.0); Mean Corpuscular Hemoglobin 28.8 pg (27.0-31.0); Mean Corpuscular Volume 87.8 fL (78.0-98.0); Mean Platelet Volume 8.7 fL (7.4-10.4); Monocytes 4 % (0-10); Neutrophil 65 % (42-75); Platelet Count 178 thou/uL (130-400); RBC Distribution Width 12.6 % (11.5-14.5); Red Blood Cell (RBC) Count 3.65 mill/uL (4.70-6.10); White Blood Cell (WBC) Count 14.7 thou/uL (4.8-10.8)
[2018-08-14] MEDS ORDERED: Sodium Chloride 0.9% 500 ML IV SCH (06:30)
[2018-08-14] MEDS: Insulin Regular 300 UNITS/3 ML VIAL SC PRN (07:34)
[2018-08-14] MEDS: Senokot S 8.6-50 MG TAB PO SCH ×2 (09:04→20:59)
[2018-08-14] MEDS: Gabapentin 100 MG CAP PO SCH ×3 (09:04→20:59)
[2018-08-14] MEDS: Polyethylene Glycol 3350 17 GM Packet PO SCH (09:04)
--- NOTE | 2018-08-14 10:20 | RAD ---
CHEST 1 VIEW: Date: 08/14/18 COMPARISON: 08/12/18, 08/13/18. HISTORY: Status post hemopneumothorax. FINDINGS: Redemonstration of subcutaneous emphysema in the right hemithorax. Posterior right rib fractures are noted. Worsening opacification right hemithorax suggesting accumulation of pleural effusion with pare nchymal change. No pneumothorax. Stable cardiac silhouette and stable aeration of the left lung. IMPRESSION: Worsening opacification right hemithorax. Reaccumulation of pleural fluid with adjacent parenchymal c hanges. POS: [facility]
--- NOTE | 2018-08-14 11:21 | CON ---
DATE OF CONSULTATION: HISTORY OF PRESENT ILLNESS: Isaac Ferro is a 78-year-old, pleasant, gentleman, who was discharged from the hospital on the at noon and came back to the hospital the same evening with worsening pain, shortness of breath, and cough. 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 He tells me he was coughing stuff that looked relatively bloody, it was yellow and green. No fever or chills. He was short of breath. He had chest pain. His chest tube was removed on Tuesday, three days ago. He is essentially nonsmoker. Previous history of asthma. No TB or pneumonia. PAST MEDICAL HISTORY: Pertinent for diabetes, hypertension, arthritis, hyperlipidemia. PAST SURGICAL HISTORY: Previous surgeries including a stent for the kidney, right carotid endarterectomy, bilateral total knee surgery. SOCIAL HISTORY: He works for [employer]. FAMILY HISTORY: Otherwise, unremarkable. 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 HOME MEDICATIONS: 1. Amaryl 2 mg. 2. Ultram 100. 3. Meloxicam 15. 4. Lisinopril 10. 5. . ALLERGIES: CEFTIN. REVIEW OF SYSTEMS: Otherwise, 10-point negative. PHYSICAL EXAMINATION: GENERAL: He is awake, alert, responsive. He is in no distress. VITAL SIGNS: Saturations are 97% on 2 L, respiratory rate 24, temperature 98, blood pressure is . CHEST: Rhonchi and crackles, right, minimal wheezing. Left, unremarkable. CARDIAC: Sinus tach. ABDOMEN: Soft without any masses. LABORATORY DATA: White count 14,000, H and H 10 and 32, platelet count 178. His PO2 was only 55, pCO2 was 34, pH 7.33. Creatinine is 2.21, sodium 126. Urine was normal. X-ray shows haziness, right two-thirds, with some probably small pleural effusion. This is not present on previous x-rays. Suggestive of atelectasis or pneumonia. IMPRESSION: 1. Status post traumatic injury, right chest contusion, pneumothorax, hemothorax. 2. Pneumonia. 3. Diabetes. 4. Hypertension. 5. Renal failure. 6. Cough. At this stage, continue antibiotics as prescribed, neb treatment, and supportive care. A CAT scan will be ordered. We will follow. TIME SPENT: Consultation note, 70 minutes, of which 50% in direct patient care. Job ID: [id number]
[2018-08-14] MEDS: Sodium Chloride 0.9% 1,000 ML IV SCH ×2 (13:04→19:32)
--- NOTE | 2018-08-14 13:14 | PRG ---
DATE OF SERVICE: 08/14/2018 SUBJECTIVE: Isaac Ferro was readmitted last night because of fever and cough. The patient initially admitted on 08/10/2018 after he was involved in an accident, involving a hand paint mixer and a shovel that hit him in the right side of the chest and threw him against a metal pole or fence. Apparently, he stayed at home for one and a half to two days before presenting with a right hemothorax, undergoing tube thoracostomy. The patient had this removed and was discharged home. He returned on 08/14/2018 at midnight, having a fever and cough. Chest x-ray revealed poly-loculated hemothorax, right. He was admitted with a diagnosis of pneumonia, but this is probably related to his hemothorax. PAST MEDICAL HISTORY: Diabetes, hypertension, and hyperlipidemia. MEDICATIONS: Lisinopril, meloxicam, and glyburide. PHYSICAL EXAMINATION: VITAL SIGNS: Temperature 97.8, pulse 89, respiratory rate 22. Since being admitted, he has been afebrile except for initial temperature of 100 degrees. LUNGS: Diminished breath sounds, right. ABDOMEN: Soft and nontender. LABORATORY DATA: White count 14, hemoglobin 10.5. Sodium 126, potassium 5.5, BUN 47, and creatinine 2.21. ASSESSMENT AND PLAN: Likely right hemothorax. I have talked to Dr. Jennings. We will consult Dr. Horacio Cruz, who I have spoken to, to evaluate him. Diabetic diet. Accu-Cheks. Pain control and mobility. Acute kidney injury. Hyponatremia and elevated potassium. Recheck his electrolytes. Follow his renal function. Increase his IV fluids for gentle hydration. Job ID: [id number]
--- NOTE | 2018-08-14 16:14 | CT ---
NONCONTRAST CT THORAX: DATE: 08/14/2018. HISTORY: Right pleural effusion. History of crush injury last Tuesday. History of prior chest tube for pne umothorax. COMPARISON: 08/10/2018. FINDINGS: The right-sided thoracostomy tube has been removed. There has now been interval increase in pleural fluid on the right with lobulated margins suggesting loculated fluid with areas of increased density fluid at the right lung base which may be related to hemorrhage. There is consolidation on the right which is probably related to passive atelectasis, although pneumonia is a possibility. A few tiny f oci of gas are seen within the pleural fluid in the right upper lung zone and right lung apex. Multiple right-sided rib fractures are again seen. Subcutaneous emphysema is again present on the right which has improved. There is mild atelectasis in the left upper lung zone. The left lung is otherwise clear. Vascular calcifications are seen in the coronary arteries as well as involving the thoracic aorta. Nonobstructing calculus in the superior pole right kidney is again seen measuring approximately 11 mm . Post cholecystectomy changes are noted. IMPRESSION: 1. Interval removal of the right-sided thoracostomy tube. There has been interval development of ri ght pleural fluid which appears loculated with foci of gas within the loculated areas of fluid within the right upper lung zone. A small amount of fluid within the right lung base demonstrates increase d density suggesting hemorrhage. 2. Consolidation at the right lung base probably attributable to passive atelectasis, although pneum onia cannot be excluded. 3. Improving right-sided subcutaneous emphysema. 4. Stable right-sided rib fractures. 5. Nonobstructing right renal calculus. POS: [facility]
--- NOTE | 2018-08-14 20:23 | CON ---
DATE OF CONSULTATION: 08/14/2018 HISTORY OF PRESENT ILLNESS: Mr. 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 He was slung against a pipe fence. This happened last week. He was in the hospital with a right hemopneumothorax and a chest tube. He was discharged on the and came back later that day with worsening pain, shortness of breath, and cough. He has had a CT scan, which shows multiloculated fluid collection on the right, which is probably consistent with a loculated hemothorax. PAST MEDICAL HISTORY: 1. Asthma. 2. Diabetes. 3. Hypertension. 4. Arthritis. 5. Hyperlipidemia. PAST SURGICAL HISTORY: 1. Kidney stone surgery. 2. Right carotid endarterectomy. 3. Bilateral total knee. SOCIAL HISTORY: He works for [employer]. MEDICATIONS: Noted. ALLERGIES: CEFTIN. REVIEW OF SYSTEMS: Ten-point review of systems is performed and is negative except as above. PHYSICAL EXAMINATION: GENERAL: This is a well-developed, well-nourished male, wheezing audibly. VITAL SIGNS: His temperature is 97.8, pulse is 89 and regular, blood pressure is 130/70, and oxygen saturation is 95% on 2 L nasal cannula. CHEST: His chest wall has extensive ecchymosis over the right side with an old chest tube dressing in place. LUNGS: Bilateral wheezing. HEART: Rhythm is regular. ABDOMEN: Soft and nontender. LABORATORY DATA: Of note, white blood cell count is 14.7, hemoglobin is 10.5, and platelet count is 178,000. Creatinine is 2.21. ASSESSMENT: This is a pleasant 78-year-old gentleman with history of right-sided rib fractures and hemopneumothorax with retained loculated hemothorax. PLAN: Plan is for thoracoscopy, evacuation of hemothorax, and complete decortication of his lung. I have discussed this with him and his family. They are agreeable to proceed. Job ID: [id number]
[2018-08-14] MEDS: methylPREDNISolone Sod Succ/PF 125 MG/2 ML VIAL IVP SCH (21:00)
[2018-08-14] MEDS: Linezolid 600 MG in Premix Bag 1 BAG IVPB SCH (21:01)
[2018-08-15] MEDS: Sodium Chloride 0.9% 1,000 ML IV SCH ×4 (00:53→20:31)
[2018-08-15] MEDS: Acetaminophen 500 MG TAB PO SCH ×3 (02:46→20:20)
[2018-08-15] MEDS: traMADol HCl 50 MG TAB PO SCH ×3 (02:46→20:21)
[2018-08-15] MEDS: Piperacillin/Tazobactam 3.375 GM in Sodium Chloride 0.9% 100 ML IVPB SCH ×3 (05:32→20:18)
[2018-08-15] MEDS ORDERED: Bupivacaine HCl 0.5%/Epinephrine 1:200,000/PF 30 ml Vial ONE (06:28)
[2018-08-15 06:44] LABS: #Lymphocytes 0.4 thou/uL (1.20-3.40); #Monocytes 0.3 thou/uL (0.11-0.59); #Neutrophils 12.5 thou/uL (1.40-6.50); %Basophils 0.1 % (0.0-1.0); %Eosinophils 0.2 % (0.0-10.0); %Lymphocytes 3.3 % (21.0-51.0); %Monocytes 2.2 % (0.0-10.0); %Neutrophils 94.2 % (42.0-75.0); Hemoglobin 10.7 g/dL (14.0-18.0); Mean Corpuscular HGB CONC 31.3 g/dL (32.0-36.0); Mean Corpuscular Hemoglobin 27.3 pg (27.0-31.0); Mean Corpuscular Volume 87.3 fL (78.0-98.0); Mean Platelet Volume 8.2 fL (7.4-10.4); Platelet Count 205 thou/uL (130-400); RBC Distribution Width 12.5 % (11.5-14.5); Red Blood Cell (RBC) Count 3.93 mill/uL (4.70-6.10); White Blood Cell (WBC) Count 13.3 thou/uL (4.8-10.8)
[2018-08-15] MEDS: Insulin Regular 300 UNITS/3 ML VIAL SC PRN ×3 (06:49→20:22)
[2018-08-15 06:50] LABS: Anion Gap 16 mmol/L (10-20); BUN (Urea Nitrogen) 36 mg/dL (8.4-25.7); Calc. Creatinine Clearance 38 mL/min (70-130); Carbon Dioxide 17 mmol/L (23-31); Chloride 105 mmol/L (98-107); Estimated GFR-MDRD 37; Glucose 254 mg/dL (83-110); Magnesium 2.2 mg/dL (1.6-2.6); Potassium 4.7 mmol/L (3.5-5.1); Sodium 133 mmol/L (136-145)
[2018-08-15] MEDS ORDERED: Midazolam HCl 2 mg/2 ml Vial ONE (08:45)
[2018-08-15] MEDS ORDERED: Fentanyl 250 MCG/5 ML VIAL ONE (08:45)
[2018-08-15] MEDS ORDERED: Enoxaparin Sodium 30 MG/0.3 ML SYRINGE SC SCH (09:00)
[2018-08-15] MEDS ORDERED: Albuterol Sulfate 1.25 MG/3 ML NEB ONE (11:08)
[2018-08-15] MEDS ORDERED: Fentanyl 100 MCG/2 ML VIAL ONE ×2 (11:08→11:35)
[2018-08-15] MEDS ORDERED: Ketorolac Tromethamine 30 MG/ML VIAL ONE (11:41)
[2018-08-15] MEDS ORDERED: HYDROmorphone 2 MG/ML VIAL ONE (11:46)
--- NOTE | 2018-08-15 11:50 | PRG ---
DATE OF SERVICE: 08/15/2018 SUBJECTIVE: The patient is a 78-year-old male, who was readmitted after treatment for pneumothorax for increased cough and fever. Chest x-ray on readmission shows poly-loculated hemothorax on the right. The patient reports feeling well today and has plans for thoracostomy and evacuation of hemothorax today. No complaints at this time. OBJECTIVE: VITAL SIGNS: Blood pressure 157/76, pulse 95, respirations 20, O2 saturation 100% on room air, and temperature 97.8. GENERAL: Alert and awake. No apparent distress. HEENT: EOMI. Moist mucosal membranes. NECK: Trachea midline. Soft. CARDIAC: Regular rate. No edema. PULMONARY: No cyanosis. Equal chest rise. ABDOMEN: Soft, nontender, and nondistended. NEUROLOGIC: No acute focal deficits. LABORATORY DATA: White blood cell count 13.3, hemoglobin 10.7, hematocrit 34.3, and platelet count 205. Sodium 133, potassium 4.7, BUN 36, and creatinine 1.77. ASSESSMENT AND PLAN: Likely right hemothorax versus pneumonia. Pulmonology has been consulted and plan is for thoracoscopy today and evacuation of hemothorax and for further evaluation of pulmonary issues. The patient's blood culture has grown methicillin-sensitive Staphylococcus aureus and the patient is currently on Zyvox and Zosyn. We will plan to continue these antibiotics for now. Regarding his elevated potassium 2 days ago, repeat BMP today shows potassium within normal limits. Regarding the patient's acute kidney injury on chronic kidney injury, creatinine is decreased today after some fluids yesterday and discontinuation of ibuprofen and vancomycin. Will follow up with Pulmonology's recommendation. This patient was seen and evaluated by Dr. Rodas on morning rounds. The patient agreed with the plan and verbalized understanding. Job ID: [id number]
--- NOTE | 2018-08-15 12:15 | RAD ---
CHEST: Date: 08/15/18 COMPARISON: 08/14/18. HISTORY: Status post thoracotomy for right empyema. FINDINGS: Single view of the chest shows an enlarged cardiomediastinal silhouette. There are two right-sided ch est tubes. The more superiorly placed chest tube is bent back on itself at the side port. There appea rs to be a small residual right pleural effusion. IMPRESSION: Postsurgical changes of the right thorax as above. POS: [facility]
[2018-08-15] MEDS ORDERED: HYDROcodone/Acetaminophen 5/325 mg Tablet PO PRN ×2 (12:54)
[2018-08-15] MEDS ORDERED: Promethazine HCl 25 MG/ML VIAL IM PRN ×2 (12:54→13:44)
[2018-08-15] MEDS ORDERED: Fentanyl 100 MCG/2 ML VIAL SLOW IVP PRN ×2 (12:54)
--- NOTE | 2018-08-15 13:04 | PRG ---
DATE OF SERVICE: 08/15/2018 SUBJECTIVE: Isaac Ferro is status post thoracotomy decortication. X-ray post surgery looks much improved, but he still has some haziness suggestive maybe of some lung contusion. OBJECTIVE: VITAL SIGNS: His I's and O's have been good, 5170 in, 1375 out. Temperature is 97, saturations 100% on 2 L, respirations 20, blood pressure 157/76. CHEST: Bilateral rhonchi, right greater than left. CARDIAC: Normal S1 and S2. No gallops. ABDOMEN: No masses. IMPRESSION: 1. Traumatic hemothorax, loculated effusion. 2. Status post decortication. 3. Renal failure. 4. Diabetes. PLAN: He has Staph aureus growing from his blood. I will add Zyvox, which should be more than adequate. Discontinue Levaquin. Continue Zosyn now. Continue supportive care. We will follow. Job ID: [id number]
[2018-08-15] MEDS ORDERED: Ondansetron HCl/PF 4 MG/2 ML Vial IVP PRN (13:44)
[2018-08-15] MEDS ORDERED: Promethazine HCl 25 MG/ML VIAL SLOW IVP PRN (13:44)
[2018-08-15] MEDS: Linezolid 600 MG in Premix Bag 1 BAG IVPB SCH ×2 (14:31→20:19)
[2018-08-15] MEDS: Gabapentin 100 MG CAP PO SCH ×3 (14:31→20:21)
[2018-08-15] MEDS: Lisinopril 10 MG TAB PO SCH (14:31)
[2018-08-15] MEDS: Meloxicam 15 MG TAB PO SCH (14:32)
[2018-08-15] MEDS: Senokot S 8.6-50 MG TAB PO SCH ×2 (14:32→20:20)
[2018-08-15] MEDS: methylPREDNISolone Sod Succ/PF 125 MG/2 ML VIAL IVP SCH ×2 (14:32→20:21)
[2018-08-15] MEDS: Polyethylene Glycol 3350 17 GM Packet PO SCH (14:45)
[2018-08-15] MEDS ORDERED: Lidocaine 1% PF 5 ML VIAL ONE (17:17)
[2018-08-15] MEDS ORDERED: Ondansetron PF 4 MG/2 ML Vial ONE (17:17)
[2018-08-15] MEDS ORDERED: Vecuronium 10 MG VIAL ONE (17:17)
[2018-08-15] MEDS ORDERED: Glycopyrrolate 0.2 MG/ML 5 ML SYRINGE ONE (17:17)
[2018-08-15] MEDS ORDERED: PROPOFOL 200 MG/20 ML VIAL ONE (17:17)
[2018-08-15] MEDS ORDERED: Sterile Water 10 ML VIAL ONE (17:17)
--- NOTE | 2018-08-15 18:37 | OP ---
DATE OF PROCEDURE: 08/15/2018 PREOPERATIVE DIAGNOSES: Status post traumatic right rib fractures with right hemothorax and chest tube drainage. Residual clotted hemothorax with loculations. POSTOPERATIVE DIAGNOSIS: Right clotted hemothorax/empyema. PROCEDURE PERFORMED: Right thoracoscopy with evacuation of clotted hemothorax and total pulmonary decortication. Therapeutic bronchoscopy ANESTHESIA: General endotracheal - Dr. Irving Crowder. ESTIMATED BLOOD LOSS: Less than 100. DRAINS: 32-[place] chest tubes x2. DESCRIPTION OF PROCEDURE: After consent was obtained, the patient was brought to the operating room and placed in the supine position on the operating table. Appropriate central line was placed and general endotracheal anesthesia was induced. A flexible fiberoptic bronchoscopy was performed to ensure endotracheal tube positioning and evacuate the right mainstem and primary and secondary bronchioles of intrabronchial fibrinous material. The patient was then placed in the left lateral decubitus position. The joints were appropriately padded. SCDs were used. The previous chest tube incision was reopened. Two separate port incisions were made. Using these ports and a 10-mm scope, the chest was explored. There was a large amount of gelatinous material within the chest, which was evacuated and irrigated clear. After the lung had been completely freed and all the clotted hemothorax removed, the cest was irrigated with 6 liters of saline, and 32-[place]ank[place] chest tubes x2 were placed, one along the diaphragm and one to the apex. The lung was re-expanded and expanded nicely. The tubes were placed to suction. 0.5% Marcaine was used to perform a field block. The wounds were then closed in layers, and Dermabond was applied to skin. Sterile dressings were applied. The patient was awakened, extubated, and transferred to the recovery room in stable condition. Needle, sponge, and instrument counts were all reported as correct at the end of the procedure. Job ID: [id number] [facility]
[2018-08-16] MEDS: traMADol HCl 50 MG TAB PO SCH ×4 (02:57→21:03)
[2018-08-16] MEDS: Piperacillin/Tazobactam 3.375 GM in Sodium Chloride 0.9% 100 ML IVPB SCH ×4 (02:57→21:02)
[2018-08-16] MEDS: Acetaminophen 500 MG TAB PO SCH ×4 (02:57→21:04)
[2018-08-16] MEDS: Sodium Chloride 0.9% 1,000 ML IV SCH (05:50)
[2018-08-16] MEDS: Insulin Regular 300 UNITS/3 ML VIAL SC PRN ×4 (06:25→21:05)
[2018-08-16 06:39] LABS: Hemoglobin 8.3 g/dL (14.0-18.0); Mean Corpuscular HGB CONC 33.3 g/dL (32.0-36.0); Mean Corpuscular Volume 87.1 fL (78.0-98.0); Mean Platelet Volume 8.2 fL (7.4-10.4); Platelet Count 177 thou/uL (130-400); RBC Distribution Width 12.7 % (11.5-14.5); Red Blood Cell (RBC) Count 2.88 mill/uL (4.70-6.10); White Blood Cell (WBC) Count 8.8 thou/uL (4.8-10.8)
[2018-08-16 06:41] LABS: Anion Gap 12 mmol/L (10-20); BUN (Urea Nitrogen) 42 mg/dL (8.4-25.7); Calc. Creatinine Clearance 39 mL/min (70-130); Carbon Dioxide 19 mmol/L (23-31); Chloride 109 mmol/L (98-107); Estimated GFR-MDRD 39; Glucose 269 mg/dL (83-110); Potassium 4.8 mmol/L (3.5-5.1); Sodium 135 mmol/L (136-145)
[2018-08-16 06:59] LABS: Band 11 % (5-11); Lymphocytes 7 % (21-51); MDiff Complete? YES; Monocytes 5 % (0-10); Myelocyte 1 % (0-0); Neutrophil 76 % (42-75)
--- NOTE | 2018-08-16 08:00 | RAD ---
PORTABLE UPRIGHT FRONTAL CHEST RADIOGRAPH: DATE: 08/16/2018. COMPARISON: 08/15/2018. HISTORY: Evaluate chest following thoracotomy. FINDINGS: There is prominent degenerative change involving bilateral shoulders. There are clips within the neck on the right. There is a stable right-sided chest tube which appears kinked in the region of the apex, stable. Sta ble hazy nonspecific increased linear density in the right perihilar region and right infrahilar kay on with volume loss of right hemithorax. There is a 2nd low-lying right-sided chest tube. The left lung is clear. IMPRESSION: Stable appearance of the chest as detailed above. POS: [facility]
[2018-08-16] MEDS: Senokot S 8.6-50 MG TAB PO SCH ×2 (08:35→21:04)
[2018-08-16] MEDS: Lisinopril 10 MG TAB PO SCH (08:35)
[2018-08-16] MEDS: Gabapentin 100 MG CAP PO SCH ×3 (08:35→21:04)
[2018-08-16] MEDS: Meloxicam 15 MG TAB PO SCH (08:35)
[2018-08-16] MEDS: Famotidine 20 MG TAB PO SCH (08:35)
[2018-08-16] MEDS: Polyethylene Glycol 3350 17 GM Packet PO SCH (08:36)
[2018-08-16] MEDS: methylPREDNISolone Sod Succ/PF 125 MG/2 ML VIAL IVP SCH (08:37)
[2018-08-16] MEDS: Linezolid 600 MG in Premix Bag 1 BAG IVPB SCH ×2 (08:39→21:03)
[2018-08-16] MEDS ORDERED: predniSONE 20 MG TAB PO SCH (10:15)
--- NOTE | 2018-08-16 10:30 | PRG ---
DATE OF SERVICE: 08/16/2018 SUBJECTIVE: Isaac Ferro is seen today in the morning. He is doing well. No pain. No shortness of breath. No cough. He is much improved. OBJECTIVE: VITAL SIGNS: Temperature 97, blood pressure 142/62, respiratory rate 20, and pulse 80. CHEST: Decreased breath sounds in right lung without any wheezing. HEART: Normal S1 and S2. No gallops. ABDOMEN: No masses. LABORATORY DATA: WBC normal , platelet count normal. Lytes are normal. Creatinine 1.70. IMPRESSION: 1. Azotemia. 2.staphlococcus sepsis. And parapneumonic staph,infection Awaiting final identification. PLAN: He needs at least 2 weeks of anti-Staph antibiotics depending on the sensitivity. If it is not MRSA, we could switch him over; if it is MRSA, continue Zyvox for a total of 2 weeks. P.o. prednisone, neb treatment, and supportive care. Job ID: [id number] [facility]
--- NOTE | 2018-08-16 12:00 | PRG ---
DATE OF SERVICE: 08/16/2018 SUBJECTIVE: This is a 78-year-old male, who has been admitted after treatment of pneumothorax with findings of hemothorax. He is status post thoracoscopy day 1. The patient reports feeling much better today than he felt before his thoracoscopy. Reports his cough has improved greatly. Denies any fevers or chills, and reports good pain control. The patient is ambulating well around the room and was encouraged to continue with ambulation. The patient has no other complaints at this time. OBJECTIVE: VITAL SIGNS: Blood pressure 142/62, pulse 87, respirations 20, O2 saturation 93% on 1 L nasal cannula, and temperature 97.6. GENERAL: Alert and aware. In no acute distress. HEENT: EOMI. Moist mucosal membranes. NECK: Trachea midline, soft. CARDIAC: Regular rate and rhythm. LUNGS: No wheezing. Mild crackles in right lung base. ABDOMEN: Soft, nontender, nondistended. NEUROLOGIC: No focal neurological deficits. CHEST: Chest tube on the right in place. LABORATORY DATA: White blood cell count 8.8, hemoglobin 8.3, hematocrit 25. Sodium 135, potassium 4.8, BUN 42, creatinine 1.7. ASSESSMENT AND PLAN: A 78-year-old male status post thoracoscopy day 1. The patient is afebrile with continued decrease of white blood cell count as well as improvement of creatinine which is now nearly down to his baseline. The patient is on Zyvox and Zosyn as of now. We will plan to continue said antibiotics until tube is pulled out of chest. At that time, we will likely discontinue Zosyn and continue Zyvox until the patient has completed a 2-week course. We will continue to watch the patient's kidney function and follow up on recommendations by Dr. Jennings. Job ID: [id number]
[2018-08-17] MEDS: Piperacillin/Tazobactam 3.375 GM in Sodium Chloride 0.9% 100 ML IVPB SCH ×2 (03:28→08:03)
[2018-08-17] MEDS: traMADol HCl 50 MG TAB PO SCH ×4 (03:29→22:08)
[2018-08-17] MEDS: Acetaminophen 500 MG TAB PO SCH ×4 (03:29→22:05)
[2018-08-17] MEDS: Insulin Regular 300 UNITS/3 ML VIAL SC PRN ×4 (06:18→22:15)
[2018-08-17] MEDS: Polyethylene Glycol 3350 17 GM Packet PO SCH (08:03)
[2018-08-17] MEDS: Linezolid 600 MG in Premix Bag 1 BAG IVPB SCH (08:03)
[2018-08-17] MEDS: Gabapentin 100 MG CAP PO SCH ×3 (08:04→22:07)
[2018-08-17] MEDS: Senokot S 8.6-50 MG TAB PO SCH ×2 (08:04→22:07)
[2018-08-17] MEDS: Meloxicam 15 MG TAB PO SCH (08:05)
[2018-08-17] MEDS: Famotidine 20 MG TAB PO SCH (08:05)
[2018-08-17] MEDS: Lisinopril 10 MG TAB PO SCH (08:06)
--- NOTE | 2018-08-17 08:36 | RAD ---
CHEST 1 VIEW: HISTORY: Dyspnea. COMPARISON: 08/16/2018. FINDINGS: Cardiac silhouette is magnified by projection. Pulmonary vasculature engorged and accentuated by sha llow inspiration. Mediastinum midline with aortic calcification. Right thoracostomy tubes remain in lace without significant residual pneumothorax. Right chest wall gas has increased slightly. Posto perative changes of the right neck are evident. Parenchymal scarring and atelectasis of the right lung is similar in appearance to the previous study . FINDINGS: 1. Slight interval increase of right neck and chest wall gas. 2. Otherwise, stable postoperative appearance of the chest. POS: [facility]
[2018-08-17] MEDS: Doxycycline 100 MG CAP PO SCH ×2 (10:14→22:07)
--- NOTE | 2018-08-17 10:18 | PRG ---
DATE OF SERVICE: 08/17/2018 SUBJECTIVE: Isaac Ferro is a 78-year-old gentleman, postop decortication, doing better. Chest x-ray looks much improved. Decreased right-sided effusion and infiltrate. OBJECTIVE: VITAL SIGNS: Blood pressure is 171/86, temperature 97, pulse 72, saturations 96% on room air. CHEST: Minimal wheezing. Rhonchi at right base. CARDIAC: Normal S1 and S2. No gallops. ABDOMEN: Soft without masses. LABORATORY DATA: His blood cultures growing Staph aureus, not MRSA, sensitive to doxycycline. IMPRESSION: 1. Status post traumatic pneumothorax with secondary staph infection, status post decortication. 2. Switch him over to doxycycline, total of two weeks antibiotics. Continue p.o. prednisone taper over the next several days. I have added Genaera to take home. Job ID: [id number]
--- NOTE | 2018-08-17 13:01 | PRG ---
DATE OF SERVICE: 08/17/2018 SUBJECTIVE: Isaac Ferro is our 78-year-old male, who is postop from fluoroscopy with decortication. The patient reports feeling even better today. He is tolerating good p.o. intake and reports ambulation. Chest x-ray continues to look improved. OBJECTIVE: VITAL SIGNS: Blood pressure 171/86, pulse 72, respirations 18, O2 saturation 96% on room air, and temperature 97.7. GENERAL: Alert and aware. No acute distress. CARDIAC: Regular rate and rhythm. No murmurs. PULMONARY: Equal chest rise, end-expiratory crackles at right lung base. ABDOMEN: Soft and nontender. Normal bowel sounds. LABORATORY DATA: There is no new laboratory data today. ASSESSMENT: This is our 78-year-old male who is status post thoracostomy and decortication, with secondary Staph infection. The patient has been switched in his antibiotic regimen to doxycycline per Dr. Jennings's recommendations. We will plan for continued p.o. prednisone taper and plan for Dulera on discharge. Chest tube management will be per Dr. Cruz with possible plans for pulling tube tomorrow. Job ID: [id number]
[2018-08-17 14:59] LABS: Hemoglobin 9.4 g/dL (14.0-18.0); Mean Corpuscular HGB CONC 32.6 g/dL (32.0-36.0); Mean Corpuscular Hemoglobin 28.6 pg (27.0-31.0); Mean Corpuscular Volume 87.9 fL (78.0-98.0); Mean Platelet Volume 7.6 fL (7.4-10.4); Platelet Count 224 thou/uL (130-400); Red Blood Cell (RBC) Count 3.29 mill/uL (4.70-6.10); White Blood Cell (WBC) Count 12.7 thou/uL (4.8-10.8)
[2018-08-17 15:10] LABS: Anion Gap 11 mmol/L (10-20); BUN (Urea Nitrogen) 58 mg/dL (8.4-25.7); Calc. Creatinine Clearance 32 mL/min (70-130); Calcium 8.4 mg/dL (7.8-10.44); Carbon Dioxide 24 mmol/L (23-31); Chloride 109 mmol/L (98-107); Estimated GFR-MDRD 31; Glucose 255 mg/dL (83-110); Magnesium 2.3 mg/dL (1.6-2.6); Phosphorus 2.5 mg/dL (2.3-4.7); Potassium 5.1 mmol/L (3.5-5.1); Sodium 139 mmol/L (136-145)
[2018-08-17 15:17] LABS: Band 6 % (5-11); Lymphocytes 10 % (21-51); MDiff Complete? YES; Metamyelocyte 2 % (0-0); Monocytes 2 % (0-10); Myelocyte 2 % (0-0); Neutrophil 78 % (42-75); PLT Morphology Comment Appears Adequate; Polychromasia SLIGHT = 2-3 cells (100X) (0-2/hpf)
[2018-08-17] MEDS ORDERED: Furosemide 20 MG TAB PO SCH (16:00)
[2018-08-17] MEDS: Mometasone/Formoterol 120 PUFF INHALER INH SCH (18:44)
[2018-08-17] MEDS ORDERED: Insulin Regular 300 UNITS/3 ML VIAL SC PRN (21:11)
[2018-08-17] MEDS: Atorvastatin Calcium 20 MG TAB PO SCH (22:15)
[2018-08-18] MEDS: Acetaminophen 500 MG TAB PO SCH ×4 (02:28→21:12)
[2018-08-18] MEDS: traMADol HCl 50 MG TAB PO SCH ×4 (02:29→21:13)
[2018-08-18 06:59] LABS: Anion Gap 11 mmol/L (10-20); BUN (Urea Nitrogen) 49 mg/dL (8.4-25.7); Calc. Creatinine Clearance 40 mL/min (70-130); Calcium 8.1 mg/dL (7.8-10.44); Carbon Dioxide 23 mmol/L (23-31); Chloride 110 mmol/L (98-107); Estimated GFR-MDRD 40; Glucose 145 mg/dL (83-110); Magnesium 1.9 mg/dL (1.6-2.6); Phosphorus 2.8 mg/dL (2.3-4.7); Potassium 4.7 mmol/L (3.5-5.1); Sodium 139 mmol/L (136-145)
[2018-08-18 07:40] LABS: Hemoglobin 9.6 g/dL (14.0-18.0); Mean Corpuscular HGB CONC 32.2 g/dL (32.0-36.0); Mean Corpuscular Hemoglobin 27.5 pg (27.0-31.0); Mean Corpuscular Volume 85.3 fL (78.0-98.0); Mean Platelet Volume 7.4 fL (7.4-10.4); Platelet Count 222 thou/uL (130-400); Red Blood Cell (RBC) Count 3.48 mill/uL (4.70-6.10); White Blood Cell (WBC) Count 12.7 thou/uL (4.8-10.8)
--- NOTE | 2018-08-18 07:40 | RAD ---
CHEST 1 VIEW: HISTORY: A 78-year-old male with a history of status post thoracotomy. COMPARISON: 08/17/2018. FINDINGS: The previously noted more superiorly oriented chest tube has been removed. The more caudal chest tub e remains in place. Minimally improving right-sided subcutaneous emphysema. Stable scattered pleura l and parenchymal opacity changes in the right chest. Heart size is normal. The lungs are clear. IMPRESSION: Removal of the more cranially located chest tube. Stable pleural and parenchymal opacity changes in the right chest. Continue short-term followup. POS: [facility]
[2018-08-18] MEDS: Mometasone/Formoterol 120 PUFF INHALER INH SCH ×2 (09:00→20:03)
[2018-08-18 09:11] LABS: Band 11 % (5-11); Lymphocytes 20 % (21-51); MDiff Complete? YES; Metamyelocyte 3 % (0-0); Monocytes 4 % (0-10); Myelocyte 3 % (0-0); Neutrophil 53 % (42-75); PLT Morphology Comment Appears Adequate; Polychromasia SLIGHT = 2-3 cells (100X) (0-2/hpf); Reactive Lymphocytes 6 % (0-10)
[2018-08-18] MEDS: Ondansetron PF 4 MG/2 ML Vial IVP PRN (09:17)
[2018-08-18] MEDS: Lisinopril 10 MG TAB PO SCH (09:18)
[2018-08-18] MEDS: Furosemide 20 MG TAB PO SCH (09:18)
[2018-08-18] MEDS: Famotidine 20 MG TAB PO SCH (09:18)
[2018-08-18] MEDS: Gabapentin 100 MG CAP PO SCH ×3 (09:19→21:12)
[2018-08-18] MEDS: Meloxicam 15 MG TAB PO SCH (09:20)
[2018-08-18] MEDS: Polyethylene Glycol 3350 17 GM Packet PO SCH (09:20)
[2018-08-18] MEDS: Senokot S 8.6-50 MG TAB PO SCH ×2 (09:20→21:16)
--- NOTE | 2018-08-18 09:59 | PRG ---
DATE OF SERVICE: 08/18/2018 SUBJECTIVE: Isaac Ferro this morning is better, less short of breath, but he is nauseated, had loose stools. He thinks it could be the antibiotic, doxycycline. OBJECTIVE: VITAL SIGNS: His sats are 98%. Pulse is 74, respiratory rate 18, and blood pressure 146/62. CHEST: No wheezing or crackles. CARDIAC: Normal S1 and S2. No gallops. ABDOMEN: Soft without masses. LABORATORY DATA: White count 12,000, H and H are 9 and 27. Lytes are normal. Creatinine is 1.6. IMPRESSION: 1. Staphylococcus sepsis with Staphylococcus pneumonia, status post decortication. 2. Nausea. 3. Renal failure. 4. Traumatic pneumothorax. PLAN: X-ray looks much improved, stable infiltrates. Probably switch him over from doxycycline to Levaquin. Since he is nauseated, the doxycycline ngozi be switched to levaquin 2 HOME when his chest tube is removed. Job ID: [id number] [facility]
[2018-08-18] MEDS: Saccharomyces boulardii 250 MG CAP PO SCH (13:00)
--- NOTE | 2018-08-18 15:46 | ULT ---
ULTRASOUND DOPPLER DUPLEX VENOUS LEFT UPPER EXTREMITY: 08/18/18 HISTORY: 78-year-old male with left upper extremity swelling and edema. TECHNIQUE: Nogueira scale, color flow and spectral analysis, of major veins of left upper extremity. Compression rama lied to all veins except the subclavian. FINDINGS: There is demonstration of blood flow, with no evidence of thrombosis, of the left internal jugular, s ubclavian, axillary, brachial, radial, ulnar, cephalic, and basilic veins. There is no evidence of fo neha fluid collection. IMPRESSION: Negative. No deep venous thrombosis of the left upper extremity. POS: [facility]
[2018-08-18] MEDS ORDERED: Furosemide 20 MG/2 ML VIAL SLOW IVP SCH (16:45)
--- NOTE | 2018-08-18 17:13 | PRG ---
DATE OF SERVICE: 08/18/2018 SUBJECTIVE: This is a 78-year-old gentleman, who was a readmission, status post multiple rib fractures and right hemopneumothorax. The patient required decortication with CV surgery. His lower chest tube remains in place this morning. There were no acute overnight events. However, the patient was started on Lasix given his significant swelling in his extremities, O2 requirements, and elevated BNP. The patient reports that his swelling has improved, however, there is an area of warm erythematous swelling along his left forearm. The patient additionally reports diarrhea since yesterday. OBJECTIVE: VITAL SIGNS: Temperature 98.7, pulse 74, respirations 18, O2 saturation 96% on 1 L nasal cannula, and blood pressure 146/82. GENERAL: Elderly appearing male, in no acute distress, sitting on edge of bed. PULMONARY: Normal work of breathing. Symmetric rise. LUNGS: Clear to auscultation bilaterally. Right chest tube is in place. CARDIOVASCULAR: Regular rate and rhythm. No obvious murmurs, rubs, or gallops. GI: Abdomen is soft, nontender, and nondistended. MUSCULOSKELETAL: The left upper forearm is warm to touch with some erythema and swelling. Right upper extremity within normal limits. NEUROLOGIC: GCS is 15. There is no focal deficit is noted. LABORATORY FINDINGS: WBC 12.7, hemoglobin 9.6, hematocrit 29.7, and platelet count 222. Sodium 139, potassium 4.7, chloride 110, carbon dioxide 23, BUN 49, creatinine 1.66. BNP 673, glucose 145, phosphorus 2.8, and magnesium 1.9. ASSESSMENT: 1. Status post blunt force trauma to the chest. 2. Right hemopneumothorax, requiring decortication. 3. Staph pneumonia, on appropriate antibiotics. 4. Chronic kidney disease, improving. 5. Possible thrombophlebitis of the left upper extremity. 6. Diarrhea. 7. Acute pain. PLAN: 1. Continue pain management as ordered. Left upper extremity ultrasound to rule out possible DVT versus thrombophlebitis. 2. Rule out C diff. 3. Continue antibiotics as ordered. 4. Continue to encourage PT, OT, and mobility. 5. Incentive spirometry and pulmonary toileting. 6. Chest tube removal likely later today, but pending CT surgery evaluation. 7. A.m. chest x-ray. 8. Plan of care was discussed with the patient and family at bedside and all questions were answered at the time of this dictation. The patient was discussed with Trauma attending. Job ID: [id number]
[2018-08-18] MEDS: Insulin Regular 300 UNITS/3 ML VIAL SC PRN ×2 (17:35→22:04)
[2018-08-18] MEDS: Atorvastatin Calcium 20 MG TAB PO SCH (21:12)
[2018-08-19] MEDS: Acetaminophen 500 MG TAB PO SCH ×4 (03:14→20:06)
[2018-08-19] MEDS: traMADol HCl 50 MG TAB PO SCH ×4 (03:15→20:06)
[2018-08-19] MEDS: Ondansetron PF 4 MG/2 ML Vial IVP PRN (04:30)
[2018-08-19 06:00] LABS: Anion Gap 13 mmol/L (10-20); BUN (Urea Nitrogen) 37 mg/dL (8.4-25.7); Calc. Creatinine Clearance 47 mL/min (70-130); Calcium 8.6 mg/dL (7.8-10.44); Carbon Dioxide 24 mmol/L (23-31); Chloride 105 mmol/L (98-107); Estimated GFR-MDRD 48; Glucose 189 mg/dL (83-110); Magnesium 1.7 mg/dL (1.6-2.6); Phosphorus 3.2 mg/dL (2.3-4.7); Sodium 137 mmol/L (136-145)
[2018-08-19] MEDS: Insulin Regular 300 UNITS/3 ML VIAL SC PRN ×4 (06:13→20:54)
[2018-08-19 06:16] LABS: Band 2 % (5-11); Eosinophils 6 % (0-10); Hemoglobin 10.1 g/dL (14.0-18.0); Lymphocytes 12 % (21-51); MDiff Complete? YES; Mean Corpuscular HGB CONC 33.4 g/dL (32.0-36.0); Mean Corpuscular Hemoglobin 28.6 pg (27.0-31.0); Mean Corpuscular Volume 85.6 fL (78.0-98.0); Mean Platelet Volume 6.8 fL (7.4-10.4); Monocytes 9 % (0-10); Neutrophil 71 % (42-75); PLT Morphology Comment Appears Adequate; Platelet Count 232 thou/uL (130-400); RBC Morphology Normal; Red Blood Cell (RBC) Count 3.52 mill/uL (4.70-6.10); White Blood Cell (WBC) Count 13.2 thou/uL (4.8-10.8)
[2018-08-19] MEDS: Mometasone/Formoterol 120 PUFF INHALER INH SCH ×2 (07:02→19:37)
[2018-08-19] MEDS: Meloxicam 15 MG TAB PO SCH (09:16)
[2018-08-19] MEDS: Famotidine 20 MG TAB PO SCH (09:17)
[2018-08-19] MEDS: Furosemide 20 MG TAB PO SCH (09:17)
[2018-08-19] MEDS: Gabapentin 100 MG CAP PO SCH ×3 (09:17→20:06)
[2018-08-19] MEDS: Lisinopril 10 MG TAB PO SCH (09:17)
--- NOTE | 2018-08-19 09:34 | RAD ---
RADIOGRAPH CHEST 1 VIEW: Date: 08/17/18 Time: 0819 hours HISTORY: 78-year-old male status post thoracotomy. COMPARISON: 08/18/18 at 0724 hours. FINDINGS: Hypoinflated lungs. Left ventricular configuration of heart. Ectasia and tortuosity of thoracic aorta . Streaky densities centered at the right mid lung zone extending to the base and upper zone, which w ere previously mild, have slightly worsened. No pneumothorax identified. Subcutaneous emphysema in th e right supraclavicular region appears more prominent now, perhaps due to positional differences. No pulmonary edema. Interval development of mild lace-like pulmonary density at left mid-lower lung zone . No pulmonary venous engorgement. IMPRESSION: 1. Interval worsening of now moderate pulmonary densities in the right lung. 2. Interval development of new faint mild pulmonary densities in the left lung. NASEEM [] POS: [facility]
[2018-08-19] MEDS: Polyethylene Glycol 3350 17 GM Packet PO SCH (09:48)
[2018-08-19] MEDS: Senokot S 8.6-50 MG TAB PO SCH ×2 (09:48→20:07)
[2018-08-19] MEDS: Saccharomyces boulardii 250 MG CAP PO SCH (11:54)
--- NOTE | 2018-08-19 12:59 | PRG ---
DATE OF SERVICE: 08/19/2018 SUBJECTIVE: This is a 78-year-old male, status post traumatic hemopneumothorax after blunt force trauma to the chest. The patient was readmitted after his initial injury with MSSA pneumonia and required decortication with CV Surgery. His chest tube was removed yesterday afternoon. There were no acute overnight events. The patient's O2 requirements have been improving. The patient states that his pain has been well controlled and he has been ambulating. Left upper extremity thrombophlebitis appears to be improving. Diarrhea has improved since starting Levaquin, then C. difficile was negative. OBJECTIVE: VITAL SIGNS: Temperature 97.5, pulse 77, respirations 20, O2 sat 94 % on room air, and blood pressure 151/78. GENERAL: Well-developed elderly male, in no acute distress, sitting on the edge of bed. PULMONARY: Normal work of breathing. Symmetric rise. Incentive spirometry approximately 1250 mL. CARDIOVASCULAR: Regular rate and rhythm. GASTROINTESTINAL: Abdomen is soft, nontender, and nondistended. MUSCULOSKELETAL: Moves all extremities x4. NEURO: No focal deficit is noted. LABORATORY FINDINGS: WBC 13.2, hemoglobin 10.1, hematocrit 30.2, and platelet count 232. Sodium 137, potassium 5.0, chloride 105, carbon dioxide 24, BUN 37, creatinine 1.42, and glucose 189. ASSESSMENT: 1. Status post blunt force trauma to the chest. 2. Right recurrent hemothorax requiring decortication. 3. Staphylococcus pneumonia, on appropriate antibiotics. 4. Chronic kidney disease, improving. 5. Congestive heart failure. 6. Thrombophlebitis, left upper extremity. 7. Diarrhea, improved. 8. Acute traumatic pain. PLAN: Continue pain management as ordered. Continue to encourage mobility, incentive spirometry, and pulmonary toileting. Continue antibiotics as ordered for a total of 14 days. Because the patient's white count has continued to increase slightly and he is still being diuresed, he is not quite ready for discharge today. We will recheck a.m. labs. If he remains off oxygen throughout the rest of today and creatinine is stable, he may be a candidate for discharge tomorrow. Plan of care was discussed with the patient and all questions were answered at the time of this dictation. The patient was discussed with Trauma Attending. Job ID: [id number] [facility]
[2018-08-19] MEDS ORDERED: Furosemide 20 MG/2 ML VIAL SLOW IVP SCH (14:00)
[2018-08-19] MEDS: Atorvastatin Calcium 20 MG TAB PO SCH (20:06)
[2018-08-20] MEDS: traMADol HCl 50 MG TAB PO SCH ×4 (03:36→21:44)
[2018-08-20] MEDS: Acetaminophen 500 MG TAB PO SCH ×4 (03:36→21:43)
[2018-08-20] MEDS: Insulin Regular 300 UNITS/3 ML VIAL SC PRN ×4 (05:21→21:40)
[2018-08-20 06:14] LABS: Anion Gap 10 mmol/L (10-20); BUN (Urea Nitrogen) 34 mg/dL (8.4-25.7); Calc. Creatinine Clearance 49 mL/min (70-130); Calcium 8.6 mg/dL (7.8-10.44); Carbon Dioxide 29 mmol/L (23-31); Chloride 101 mmol/L (98-107); Estimated GFR-MDRD 50; Glucose 184 mg/dL (83-110); Magnesium 1.5 mg/dL (1.6-2.6); Phosphorus 3.7 mg/dL (2.3-4.7); Potassium 4.6 mmol/L (3.5-5.1); Sodium 135 mmol/L (136-145)
[2018-08-20 06:37] LABS: Band 2 % (5-11); Eosinophils 6 % (0-10); Hemoglobin 9.5 g/dL (14.0-18.0); Lymphocytes 14 % (21-51); MDiff Complete? YES; Mean Corpuscular HGB CONC 33.3 g/dL (32.0-36.0); Mean Corpuscular Hemoglobin 28.4 pg (27.0-31.0); Mean Corpuscular Volume 85.4 fL (78.0-98.0); Mean Platelet Volume 6.6 fL (7.4-10.4); Metamyelocyte 1 % (0-0); Monocytes 8 % (0-10); Myelocyte 1 % (0-0); Neutrophil 68 % (42-75); PLT Morphology Comment Appears Adequate; Platelet Count 233 thou/uL (130-400); RBC Distribution Width 12.9 % (11.5-14.5); Red Blood Cell (RBC) Count 3.33 mill/uL (4.70-6.10); White Blood Cell (WBC) Count 12.9 thou/uL (4.8-10.8)
[2018-08-20] MEDS: Mometasone/Formoterol 120 PUFF INHALER INH SCH ×2 (07:09→19:49)
[2018-08-20] MEDS: Magnesium Oxide 400 MG TAB PO SCH ×2 (08:20→21:44)
[2018-08-20] MEDS: Meloxicam 15 MG TAB PO SCH (08:20)
[2018-08-20] MEDS: Ondansetron PF 4 MG/2 ML Vial IVP PRN (08:20)
[2018-08-20] MEDS: Lisinopril 10 MG TAB PO SCH (08:21)
[2018-08-20] MEDS: Gabapentin 100 MG CAP PO SCH ×3 (08:21→21:43)
[2018-08-20] MEDS: Famotidine 20 MG TAB PO SCH (08:21)
[2018-08-20] MEDS: Senokot S 8.6-50 MG TAB PO SCH ×2 (08:22→21:44)
[2018-08-20] MEDS: Polyethylene Glycol 3350 17 GM Packet PO SCH (08:22)
--- NOTE | 2018-08-20 10:00 | RAD ---
SINGLE VIEW OF THE CHEST: COMPARISON: 08/19/2018. HISTORY: Status post thoracotomy. FINDINGS: A single view of the chest shows an enlarged but stable cardiomediastinal silhouette. Opacities are seen in the right lung base which may represent atelectasis or an infiltrate. IMPRESSION: Right basilar atelectasis versus infiltrate. POS: [facility]
[2018-08-20] MEDS: Saccharomyces boulardii 250 MG CAP PO SCH (11:53)
--- NOTE | 2018-08-20 15:21 | PRG ---
DATE OF SERVICE: 08/20/2018 SUBJECTIVE: The patient remains on the surgical floor. He has had two chest tubes removed since my last visit with him. He is currently on p.o. antibiotics that were guided by his culture sensitivities. He is tolerating a diet. His pain is controlled. He is working with Physical and Occupational Therapy. OBJECTIVE: VITAL SIGNS: Temperature is 98.2, heart rate 87, blood pressure 135/72, respirations are 20, and oxygen saturation 92% on room air. GENERAL: The patient is resting comfortably, sitting at the bedside, having lunch. He is awake, alert, and oriented x3. [place] Coma Scale is 15. HEENT: Unremarkable. LUNGS: Clear to auscultation. Primarily on the left, the right still has scattered rhonchi that improves with cough. HEART: Regular rate and rhythm. ABDOMEN: Soft, flat, and nontender with active bowel sounds. EXTREMITIES: Neurovascularly intact x4. LABORATORY FINDINGS: White blood cell count 12.9, hemoglobin 9.5, hematocrit 28.5, and platelets are 233. Sodium 135, potassium 4.6, chloride 101, CO2 of 29, BUN 34, creatinine 1.37, glucose 184, phosphorus 3.7, magnesium 1.5. AP chest x-ray shows persistent right basilar atelectasis versus infiltrate. ASSESSMENT: 1. Status post retained hemothorax. 2. Staphylococcal pneumonia, on appropriate antibiotics. 3. Chronic kidney disease, improving. 4. Congestive heart failure, stable. 5. Thrombophlebitis, left upper extremity. PLAN: Plan will be to continue supportive care, pulmonary toilet, antibiotics for a total of 14 days, and we will discuss with all consultants tomorrow and likely the patient will be ordered to be discharged home tomorrow. This was discussed with the patient and the family and they were very happy with this. The evaluation and examination will be discussed with Dr. Zabala after this dictation. Job ID: [id number]
[2018-08-20] MEDS: Atorvastatin Calcium 20 MG TAB PO SCH (21:43)
[2018-08-21] MEDS: traMADol HCl 50 MG TAB PO SCH ×2 (03:51→09:10)
[2018-08-21] MEDS: Acetaminophen 500 MG TAB PO SCH ×2 (03:51→09:10)
[2018-08-21 06:39] LABS: #Eosinphils 0.6 thou/uL (0.0-0.7); #Monocytes 0.9 thou/uL (0.11-0.59); #Neutrophils 11.7 thou/uL (1.40-6.50); %Basophils 0.2 % (0.0-1.0); %Lymphocytes 13.3 % (21.0-51.0); %Monocytes 6.1 % (0.0-10.0); %Neutrophils 76.4 % (42.0-75.0); Hemoglobin 10.7 g/dL (14.0-18.0); Mean Corpuscular HGB CONC 32.8 g/dL (32.0-36.0); Mean Corpuscular Hemoglobin 28.3 pg (27.0-31.0); Mean Corpuscular Volume 86.3 fL (78.0-98.0); Mean Platelet Volume 6.6 fL (7.4-10.4); Platelet Count 287 thou/uL (130-400); Red Blood Cell (RBC) Count 3.78 mill/uL (4.70-6.10); White Blood Cell (WBC) Count 15.3 thou/uL (4.8-10.8)
[2018-08-21 06:58] LABS: Anion Gap 12 mmol/L (10-20); BUN (Urea Nitrogen) 29 mg/dL (8.4-25.7); Calc. Creatinine Clearance 47 mL/min (70-130); Calcium 9.2 mg/dL (7.8-10.44); Carbon Dioxide 26 mmol/L (23-31); Chloride 99 mmol/L (98-107); Estimated GFR-MDRD 48; Glucose 165 mg/dL (83-110); Magnesium 1.6 mg/dL (1.6-2.6); Phosphorus 3.1 mg/dL (2.3-4.7); Potassium 5.1 mmol/L (3.5-5.1); Sodium 132 mmol/L (136-145)
[2018-08-21] MEDS: Mometasone/Formoterol 120 PUFF INHALER INH SCH (06:59)
--- NOTE | 2018-08-21 07:36 | RAD ---
CHEST 1 VIEW: Date: 08/21/18 HISTORY: 78-year-old male with history of status post thoracotomy. COMPARISON: 08/20/18. FINDINGS: Improving right-sided subcutaneous emphysema. Patchy pleural and parenchymal opacity changes in the r ight chest with some associated volume loss. No evidence for pneumothorax or other acute process. IMPRESSION: Stable chest. No new process. No pneumothorax. POS: [facility]
[2018-08-21 07:39] VITALS: BP 109/71; TEMP 98.5
[2018-08-21] MEDS: Senokot S 8.6-50 MG TAB PO SCH (08:16)
[2018-08-21] MEDS: Lisinopril 10 MG TAB PO SCH (08:16)
[2018-08-21] MEDS: Polyethylene Glycol 3350 17 GM Packet PO SCH (08:16)
[2018-08-21] MEDS: Magnesium Oxide 400 MG TAB PO SCH (09:10)
[2018-08-21] MEDS: Meloxicam 15 MG TAB PO SCH (09:10)
[2018-08-21] MEDS: Famotidine 20 MG TAB PO SCH (09:10)
[2018-08-21] MEDS: Gabapentin 100 MG CAP PO SCH (09:10)
--- NOTE | 2018-08-21 09:49 | PRG ---
DATE OF SERVICE: 08/21/2018 SUBJECTIVE: This morning, the patient is awake, responsive, is in no distress. Less pain, less shortness of breath. OBJECTIVE: VITAL SIGNS: Sats are 93% on room air, respirations 18, temperature 98, and blood pressure is 109/71. CHEST: Decreased breath sounds. No wheezing. CARDIAC: Normal S1 and S2. No gallops. ABDOMEN: No masses. DIAGNOSTIC DATA: X-ray looks stable; findings, chest tube is removed. Some scarring in the base. LABORATORY DATA: Creatinine 1.43. White count 15,000. IMPRESSION: 1. Status post decortication. 2. Staphylococcus empyema. PLAN: He can be discharged home on Levaquin. He can see us in the office in 2 weeks. Prescription for Dulera was given to be used as needed. Job ID: [id number]
--- NOTE | 2018-08-23 01:31 | DIS ---
DATE OF ADMISSION: 08/14/2018 DATE OF DISCHARGE: 08/21/2018 ADMISSION DIAGNOSES: 1. Status post traumatic hemopneumothorax. 2. Multiple right rib fractures. 3. Possible hospital-acquired pneumonia, staphylococcal pneumonia. CONSULTATION: Cardiovascular Surgery, Dr. Cruz. PROCEDURE: Video-assisted thoracoscopic surgery, VATS. SUMMARY: The patient is a 78-year-old man who was admitted to our service and had been recently discharged from our service the day of his most recent admission. The patient returned to the hospital on the same day of discharge with a chief complaint of wheezing. The patient underwent evaluation and examination to include a CT scan, which showed likely retained hemothorax at which time, we asked Dr. Cruz to evaluate the patient for possible VATS procedure, which he did undergo and tolerated well. The patient will have chest tubes in place for several days and eventually, they would be removed. The patient was noted to also have Staphylococcus aureus pneumonia, for which he underwent IV antibiotics and then was transitioned to p.o. antibiotics. The patient was followed along by Pulmonology Critical Care, Dr. Jennings, who recommended that the patient will have a full 14 days of antibiotics. At the time of discharge, the patient was tolerating a diet. His pain was controlled. His bowel function had returned. His chest x-ray had improved and all physicians were in agreement that the patient was stable for discharge. was agreeable to this and the patient was discharged home with his Mihir HARLEYI and Levaquin to complete his 14 days of antibiotics. The patient will follow up with Cardiovascular Surgery and Pulmonary in 2 weeks or sooner as needed. The patient may also follow up with the Trauma Clinic as needed. Job ID: [id number]
--- NOTE | 2018-08-23 12:12 | PQF ---
INDU BUSH GARY PA-C [id number] [facility] A- [id number] CLINICAL DOCUMENTATION CLARIFICATION FORM: POST DISCHARGE DATE: 08/23/2018 ATTN: Demetrius Lawrence PA-C Please exercise your independent, professional judgment in responding to the clarification form. Clinical indicators are provided on the bottom of this form for your review Please check appropriate box(s) to clarify if the following diagnosis has been ruled in or ruled out: Staphylococcus sepsis _ [X ] Ruled in diagnosis [ ] Continue to treat [ X ] Resolved [ ] Ruled out diagnosis [ ] Cannot rule out diagnosis [ ] Other diagnosis (please specify) [ ] Unable to determine In addition, please specify: Present on Admission (POA): [ ] Yes [ ] No [ ] Unable to determine For continuity of documentation, please document condition throughout progress notes and discharge summary. Thank You. CLINICAL INDICATORS - SIGNS / SYMPTOMS / LABS Per 08/18 progress note: Staphylococcus sepsis with Staphylococcus pneumonia. Per 08/17 progress note: His blood cultures growing Staph aureus, not MRSA, sensitive to doxycyocline. Per 08/16 progress note: Staphylococcus sepsis and parapneumonic staph infection. Per 08/15 progress note: He has Staph aureus growing from his blood. RISK FACTORS (per progress notes) Status post traumatic hemopneumothorax now with hemothorax and MSSA pneumonia. TREATMENTS (per progress notes) Zyvox and Zosyn. Doxycycline. Levaquin. (This form is maintained as a part of the permanent medical record) 2014 [employer] [place]. All Rights Reserved Bianca [email or web address] [phone] CHRISTOPHER
== END 2018-08-21 11:52 | disposition home or self-care (01) | DRG 163 ==
LOC: ERS 18:06 → SURG A 22:00 → OBSVTOIN 08-14 13:21
PROVIDERS: ADMIT Specialist; ATTEND Specialist
PROC: 0BCK4ZZ Extirpation of Matter from Right Lung, Percutaneous Endoscopic Approach (ICD-10-PCS; principal; 2018-08-15)
PROC: 0BJ08ZZ Inspection of Tracheobronchial Tree, Via Natural or Artificial Opening Endoscopic (ICD-10-PCS; 2018-08-15)
PROC: 0BNK4ZZ Release Right Lung, Percutaneous Endoscopic Approach (ICD-10-PCS; 2018-08-15)
PROC: 0W9940Z Drainage of Right Pleural Cavity with Drainage Device, Percutaneous Endoscopic Approach (ICD-10-PCS; 2018-08-15)
PROC: 0W9940Z Drainage of Right Pleural Cavity with Drainage Device, Percutaneous Endoscopic Approach (ICD-10-PCS; 2018-08-15)
DX: S27.1XXA Traumatic hemothorax, initial encounter (principal); A41.01 Sepsis due to Methicillin susceptible Staphylococcus aureus; J15.211 Pneumonia due to Methicillin susceptible Staphylococcus aureus; E87.1 Hypo-osmolality and hyponatremia; N17.9 Acute kidney failure, unspecified; Y95 Nosocomial condition; E78.5 Hyperlipidemia, unspecified; I12.9 Hypertensive chronic kidney disease with stage 1 through stage 4 chronic kidney disease, or unspecified chronic kidney disease; E11.22 Type 2 diabetes mellitus with diabetic chronic kidney disease; N18.9 Chronic kidney disease, unspecified; R19.7 Diarrhea, unspecified; G89.11 Acute pain due to trauma; Z88.1 Allergy status to other antibiotic agents; Z79.84 Long term (current) use of oral hypoglycemic drugs; Z79.899 Other long term (current) drug therapy; Z96.653 Presence of artificial knee joint, bilateral; W22.8XXA Striking against or struck by other objects, initial encounter
CPT/HCPCS: 32551; 36415; 36416; 71045; 71046; 71250; 71260; 80048; 80053; 81003; 82805; 83690; 83735; 83880; 84100; 84484; 85025; 85610; 85730; 86850; 86900; 86901; 87040; 87070; 87077; 87149; 87186; 87205; 87324; 87449; 90471; 90662; 94640; 94644; 96374; 96375; 99152; 99292; A4216; G0008; G8978-GP-CJ; G8978-GP-CK; G8979-GP-CI; G8979-GP-CJ; G8980-GP-CJ; G8987-GO-CI; G8987-GO-CJ; G8988-GO-CI; G8989-GO-CI; J0131; J0360; J0670; J1170; J1642; J1650; J1815; J1885; J1940; J1956; J2001; J2020; J2250; J2270; J2405; J2543; J2704; J2930; J3010; J3370; J7050; J7506; J7611; J7620; Q0162

== ENCOUNTER 2018-09-11 14:19 | Outpatient (CLI) | payer MEDICARE ==
--- NOTE | 2018-09-11 15:19 | RAD ---
RADIOGRAPH CHEST 2 VIEWS: Date: 09/11/18 Time: 1444 HOURS HISTORY: 78-year-old male with dyspnea. COMPARISON: 08/21/18. FINDINGS: Lung volumes are greater on the current study compared to the previous study, especially the right walter ng, which was hypoinflated on the prior study. There has been interval improvement in the generalized mildly increased attenuation throughout the right lung that was present on the prior study. There is blunting of the right lateral costophrenic angle. Right posterior costophrenic angle is indistinct. Right hemidiaphragm remains slightly elevated. No cardiomegaly. No pulmonary edema. Left lung is rela tively clear. No pleural effusion on the left side. No pneumothorax. IMPRESSION: 1. Volume loss in the right lung with mild haziness of the right lung may be related to the history of prior right-sided thoracotomy. 2. No definitive evidence of acute disease. JN [] POS: [facility]
== END 2018-09-11 14:20 | disposition home or self-care (01) ==
LOC: RAD 14:19
PROVIDERS: ATTEND Family Medicine
DX: J94.2 Hemothorax (principal); R91.8 Other nonspecific abnormal finding of lung field
CPT/HCPCS: 71046

== ENCOUNTER 2019-04-18 13:34 | Emergency (ER) | payer MEDICARE ==
[2019-04-18 14:14] LABS: #Eosinphils 0.2 thou/uL (0.0-0.7); #Lymphocytes 1.2 thou/uL (1.20-3.40); #Monocytes 0.5 thou/uL (0.11-0.59); #Neutrophils 3.6 thou/uL (1.40-6.50); %Basophils 0.8 % (0.0-1.0); %Eosinophils 3.7 % (0.0-10.0); %Lymphocytes 21.1 % (21.0-51.0); %Monocytes 8.7 % (0.0-10.0); %Neutrophils 65.7 % (42.0-75.0); Hemoglobin 12.7 g/dL (14.0-18.0); Mean Corpuscular HGB CONC 33.8 g/dL (32.0-36.0); Mean Corpuscular Hemoglobin 28.9 pg (27.0-31.0); Mean Corpuscular Volume 85.7 fL (78.0-98.0); Mean Platelet Volume 8.3 fL (7.4-10.4); Platelet Count 153 thou/uL (130-400); RBC Distribution Width 12.3 % (11.5-14.5); White Blood Cell (WBC) Count 5.4 thou/uL (4.8-10.8)
[2019-04-18 14:31] LABS: ALT (SGPT) 23 U/L (8-55); AST (SGOT) 21 U/L (5-34); Alkaline Phosphatase 67 U/L (40-150); Anion Gap 13 mmol/L (10-20); BUN (Urea Nitrogen) 46 mg/dL (8.4-25.7); Bilirubin, Total 0.3 mg/dL (0.2-1.2); Calc. Creatinine Clearance 0 mL/min (70-130); Carbon Dioxide 25 mmol/L (23-31); Chloride 101 mmol/L (98-107); Estimated GFR-MDRD 29; Globulin 2.1 g/dL (2.4-3.5); Glucose 314 mg/dL (83-110); Potassium 4.7 mmol/L (3.5-5.1); Protein, Total 6.1 g/dL (5.8-8.1); Sodium 134 mmol/L (136-145)
--- NOTE | 2019-04-18 15:23 | RAD ---
PORTABLE CHEST ONE VIEW: 04/18/19 at 2:22 p.m. HISTORY: Chest pain, loss of vision in both eyes. This lasted 15 minutes and then resolved. FINDINGS: Comparison made with exam of 09/11/18. The heart size is normal. The lungs are well expanded without focal areas of consolidation, pneumotho races, or pleural effusions. There are fractures involving the right ribs. There are postop changes o f left rotator cuff repair. IMPRESSION: No acute process. POS: [facility]
--- NOTE | 2019-04-18 15:50 | CT ---
CT BRAIN WITHOUT CONTRAST: 04/18/19 HISTORY: Speech difficulty. FINDINGS: Comparison made with exam of 07/11/11. No evidence of acute infarct, hemorrhage, midline shift or abnormal extra-axial fluid collections are seen. The ventricular size is appropriate and the basilar cisterns patent. The bony calvarium is int act. The visualized paranasal sinuses and mastoid air cells are well aerated. IMPRESSION: No CT evidence of acute intracranial process. POS: [facility]
[2019-04-18 17:41] LABS: Troponin I Less than 0.010 ng/mL (< 0.028)
== END 2019-04-18 18:16 | disposition home or self-care (01) ==
LOC: ERS 13:34
DX: R07.89 Other chest pain (principal); N17.9 Acute kidney failure, unspecified; R55 Syncope and collapse; E11.65 Type 2 diabetes mellitus with hyperglycemia; E78.5 Hyperlipidemia, unspecified; I10 Essential (primary) hypertension; Z79.899 Other long term (current) drug therapy; Z79.84 Long term (current) use of oral hypoglycemic drugs
CPT/HCPCS: 36415; 70450; 71045; 80053; 82550; 84484; 85025; 93005; 96360

== ENCOUNTER 2022-06-19 12:05 | Emergency (ER) | payer MEDICARE ==
[2022-06-19] MEDS ORDERED: Lidocaine 5% Patch TD SCH (13:30)
[2022-06-20] MEDS ORDERED: Transdermal Patch Removal TOP SCH (02:00)
== END 2022-06-19 13:59 | disposition home or self-care (01) ==
LOC: ERS 12:05
DX: S22.32XA Fracture of one rib, left side, initial encounter for closed fracture (principal); E11.9 Type 2 diabetes mellitus without complications; I10 Essential (primary) hypertension; E78.5 Hyperlipidemia, unspecified; Z79.84 Long term (current) use of oral hypoglycemic drugs; W11.XXXA Fall on and from ladder, initial encounter

== ENCOUNTER 2022-09-18 10:35 | Observation (INO) | payer MEDICARE ==
[2022-09-18] MEDS ORDERED: LORazepam 2 MG/ML SYR.(CARPUJECT) ONE (10:50)
[2022-09-18 11:04] LABS: #Basophils 0.1 thou/uL (0.0-0.2); #Eosinphils 0.2 thou/uL (0.0-0.7); #Lymphocytes 1.5 thou/uL (1.20-3.40); #Monocytes 0.4 thou/uL (0.11-0.59); #Neutrophils 3.2 thou/uL (1.40-6.50); %Eosinophils 4.3 % (0.0-10.0); %Lymphocytes 28.1 % (21.0-51.0); %Monocytes 7.6 % (0.0-10.0); %Neutrophils 59.1 % (42.0-75.0); Hemoglobin 13.5 g/dL (14.0-18.0); Mean Corpuscular HGB CONC 33.9 g/dL (32.0-36.0); Mean Corpuscular Hemoglobin 29.2 pg (27.0-31.0); Mean Platelet Volume 8.4 fL (7.4-10.4); Platelet Count 162 10x3/uL (130-400); RBC Distribution Width 12.7 % (11.5-14.5); Red Blood Cell (RBC) Count 4.61 mill/uL (4.70-6.10); White Blood Cell (WBC) Count 5.5 10x3/uL (4.8-10.8)
[2022-09-18 11:19] LABS: ALT (SGPT) 21 U/L (8-55); AST (SGOT) 25 U/L (5-34); Albumin 4.2 g/dL (3.4-4.8); Alkaline Phosphatase 77 U/L (40-110); Anion Gap 13 mmol/L (10-20); BUN (Urea Nitrogen) 34 mg/dL (8.4-25.7); Bilirubin, Total 0.4 mg/dL (0.2-1.2); Calc. Creatinine Clearance 0 mL/min (70-130); Calcium 9.5 mg/dL (7.8-10.44); Carbon Dioxide 21 mmol/L (23-31); Chloride 107 mmol/L (98-107); Estimated GFR 47; Globulin 2.3 g/dL (2.4-3.5); Glucose 162 mg/dL (83-110); Potassium 5.2 mmol/L (3.5-5.1); Protein, Total 6.5 g/dL (5.8-8.1); Sodium 136 mmol/L (136-145)
[2022-09-18] MEDS ORDERED: Lisinopril 10 MG TAB ONE (11:24)
[2022-09-18 11:40] LABS: CKMB 7.5 ng/mL (0-6.6)
[2022-09-18] MEDS ORDERED: Aspirin 325 MG TAB ONE (12:38)
[2022-09-18] MEDS ORDERED: Nitroglycerin 2% Ointment 1 INCH/1 GM Packet ONE (12:38)
[2022-09-18] MEDS ORDERED: hydrALAZINE 20 MG/ML VIAL ONE (14:01)
[2022-09-18 14:56] LABS: Troponin I 0.039 ng/mL (< 0.028)
[2022-09-18 15:49] LABS: SARS-CoV-2 NAA Rapid Test Not Detected (NotDetected)
[2022-09-18] MEDS ORDERED: Nitroglycerin 0.4 MG TAB (25 Tab Bottle) SL PRN (16:09)
[2022-09-18] MEDS ORDERED: Ondansetron ODT 4 MG TAB PO PRN (16:10)
[2022-09-18] MEDS ORDERED: Calcium Carbonate 500 MG ChewTAB PO PRN (16:10)
[2022-09-18] MEDS ORDERED: Ondansetron PF 4 MG/2 ML Vial IVP PRN (16:10)
[2022-09-18] MEDS ORDERED: Acetaminophen 325 MG TAB PO PRN (16:10)
[2022-09-18] MEDS ORDERED: hydrALAZINE 25 MG TAB PO PRN (16:12)
[2022-09-18 17:35] VITALS: BMI 23.6
[2022-09-18] MEDS ORDERED: Labetalol HCl 100 MG/20 ML VIAL SLOW IVP PRN (17:55)
[2022-09-18] MEDS ORDERED: Dextrose 5% in Water 1,000 ML IV PRN (17:59)
[2022-09-18] MEDS ORDERED: Insulin Regular 300 UNITS/3 ML VIAL SC PRN ×2 (17:59)
[2022-09-18] MEDS ORDERED: Dextrose 50% Abboject 50 ML SYRINGE SLOW IVP PRN (17:59)
[2022-09-18] MEDS ORDERED: LOKELMA 5 GM PACKET PO SCH (18:00)
[2022-09-18] MEDS ORDERED: Sodium Bicarbonate Tab 325 MG TAB PO SCH (18:00)
[2022-09-18 18:14] LABS: Troponin I 0.038 ng/mL (< 0.028)
[2022-09-18] MEDS ORDERED: Amlodipine 5 MG TAB PO SCH ×2 (21:00)
[2022-09-18] MEDS: Famotidine 20 MG TAB PO SCH (21:14)
[2022-09-19 05:13] LABS: Anion Gap 11 mmol/L (10-20); BUN (Urea Nitrogen) 34 mg/dL (8.4-25.7); Calc. Creatinine Clearance 46 mL/min (70-130); Calcium 9.1 mg/dL (7.8-10.44); Carbon Dioxide 22 mmol/L (23-31); Chloride 109 mmol/L (98-107); Estimated GFR 54; Glucose 112 mg/dL (83-110); Potassium 4.3 mmol/L (3.5-5.1); Sodium 138 mmol/L (136-145)
[2022-09-19] MEDS ORDERED: Amlodipine 5 MG TAB PO SCH (09:00)
[2022-09-19] MEDS ORDERED: Aspirin Chewable 81 MG TAB PO SCH (09:00)
[2022-09-19] MEDS: Famotidine 20 MG TAB PO SCH (11:02)
[2022-09-19 14:37] VITALS: BP 120/62; TEMP 97.2
== END 2022-09-19 15:35 | disposition home or self-care (01) ==
LOC: ERS 10:35 → ERHOLD 14:09 → 2NO 17:09
PROVIDERS: ADMIT Internal Medicine; ATTEND Internal Medicine
DX: I16.1 Hypertensive emergency (principal); E87.5 Hyperkalemia; I12.9 Hypertensive chronic kidney disease with stage 1 through stage 4 chronic kidney disease, or unspecified chronic kidney disease; E11.22 Type 2 diabetes mellitus with diabetic chronic kidney disease; N18.30 Chronic kidney disease, stage 3 unspecified; D63.1 Anemia in chronic kidney disease; R77.8 Other specified abnormalities of plasma proteins; I47.1 Supraventricular tachycardia; E78.5 Hyperlipidemia, unspecified; I25.10 Atherosclerotic heart disease of native coronary artery without angina pectoris; M19.90 Unspecified osteoarthritis, unspecified site; I07.1 Rheumatic tricuspid insufficiency; Z79.1 Long term (current) use of non-steroidal anti-inflammatories (NSAID); Z79.84 Long term (current) use of oral hypoglycemic drugs; Z79.899 Other long term (current) drug therapy; Z88.1 Allergy status to other antibiotic agents; Z20.822 Contact with and (suspected) exposure to COVID-19
CPT/HCPCS: 71045; 80048; 80053; 82553; 82962 ×2; 84484 ×2; 85025; 93005; 93306; 96374; 99284; G0378 ×3; J2060; U0002; 36415; 36416; J0360; J1815

== ENCOUNTER 2022-11-26 13:31 | Outpatient (CLI) | payer MEDICARE, OTHER | END 2022-11-26 13:32 | disposition home or self-care (01) | LOC: BICRAD 13:31 | PROVIDERS: ATTEND Family Medicine | DX: M25.511 Pain in right shoulder (principal); M75.121 Complete rotator cuff tear or rupture of right shoulder, not specified as traumatic; M19.011 Primary osteoarthritis, right shoulder ==

== ENCOUNTER 2023-02-21 17:30 | Outpatient (CLI) | payer OTHER | END 2023-02-21 17:31 | disposition home or self-care (01) | LOC: SLEEPLAB 17:30 | PROVIDERS: ATTEND Internal Medicine Critical Care Medicine | DX: G47.33 Obstructive sleep apnea (adult) (pediatric) (principal); R06.83 Snoring; I10 Essential (primary) hypertension | CPT/HCPCS: 95800 ==

== ENCOUNTER 2023-04-30 15:54 | Inpatient (IN) | payer MEDICARE ==
[2023-04-30 16:14] LABS: #Basophils 0.1 thou/uL (0.0-0.2); #Eosinphils 0.2 thou/uL (0.0-0.7); #Monocytes 0.7 thou/uL (0.11-0.59); #Neutrophils 5.5 thou/uL (1.40-6.50); %Basophils 0.6 % (0.0-1.0); %Eosinophils 2.5 % (0.0-10.0); %Lymphocytes 20.7 % (21.0-51.0); Hematocrit 36.8 % (42.0-52.0); Hemoglobin 12.2 g/dL (14.0-18.0); Mean Corpuscular HGB CONC 33.2 g/dL (32.0-36.0); Mean Corpuscular Hemoglobin 28.4 pg (27.0-31.0); Mean Corpuscular Volume 85.8 fl (78.0-98.0); Mean Platelet Volume 10.4 fL (7.4-10.4); Platelet Count 172 10x3/uL (130-400); Red Blood Cell (RBC) Count 4.29 mill/uL (4.70-6.10); White Blood Cell (WBC) Count 8.1 10x3/uL (4.8-10.8)
[2023-04-30] MEDS ORDERED: Labetalol HCl 100 MG/20 ML VIAL ONE (16:24)
[2023-04-30] MEDS ORDERED: Tenecteplase 50 MG ONE (16:24)
[2023-04-30 16:26] LABS: PTT 23.4 sec (22.9-36.1); Prothrombin Time 13.3 sec (12.0-14.7)
[2023-04-30 16:38] LABS: ALT (SGPT) 21 U/L (8-55); AST (SGOT) 22 U/L (5-34); Albumin 4.3 g/dL (3.4-4.8); Alkaline Phosphatase 86 U/L (40-110); Anion Gap 14 mmol/L (10-20); BUN (Urea Nitrogen) 47 mg/dL (8.4-25.7); Bilirubin, Total 0.3 mg/dL (0.2-1.2); Calc. Creatinine Clearance 0 mL/min (70-130); Calcium 9.7 mg/dL (7.8-10.44); Carbon Dioxide 21 mmol/L (23-31); Chloride 106 mmol/L (98-107); Estimated GFR 33; Globulin 2.6 g/dL (2.4-3.5); Glucose 275 mg/dL (83-110); Protein, Total 6.9 g/dL (5.8-8.1); Sodium 136 mmol/L (136-145)
[2023-04-30] MEDS ORDERED: Ondansetron PF 4 MG/2 ML Vial IVP PRN (17:07)
[2023-04-30] MEDS ORDERED: Ondansetron ODT 4 MG TAB PO PRN (17:07)
[2023-04-30] MEDS ORDERED: Bisacodyl 5 MG TAB PO PRN (17:07)
[2023-04-30] MEDS ORDERED: Bisacodyl 10 MG SUPP PR PRN (17:07)
[2023-04-30] MEDS ORDERED: Labetalol HCl 100 MG/20 ML VIAL SLOW IVP PRN (17:07)
[2023-04-30] MEDS ORDERED: niCARdipine 25 MG in Sodium Chloride 0.9% 250 ML 250 ML IVPB PRN (17:07)
[2023-04-30] MEDS ORDERED: Communication Order-Pharmacy FS SCH (17:07)
[2023-04-30] MEDS ORDERED: Dextrose 50% Abboject 50 ML SYRINGE SLOW IVP PRN (17:18)
[2023-04-30] MEDS ORDERED: Glucagon 1 MG/ML KIT IM PRN (17:18)
[2023-04-30] MEDS ORDERED: Dextrose 5% in Water 1,000 ML IV PRN (17:18)
[2023-04-30] MEDS ORDERED: niCARdipine 25 MG/10 ML SDV ONE (17:32)
[2023-04-30] MEDS: Sodium Chloride 0.9% 1,000 ML IV SCH (20:03)
[2023-04-30] MEDS ORDERED: Atorvastatin Calcium 40 MG TAB PO SCH (21:00)
[2023-05-01] MEDS ORDERED: Electrolyte Replacement Protocol 1 EACH FS SCH (00:45)
[2023-05-01] MEDS: Sodium Chloride 0.9% 1,000 ML IV SCH ×3 (05:57→20:16)
[2023-05-01] MEDS: Lisinopril 10 MG TAB PO SCH (10:24)
[2023-05-01] MEDS: Famotidine/PF 20 mg/2ml Vial SLOW IVP SCH (10:25)
[2023-05-01] MEDS: Senokot S 8.6-50 MG TAB PO PRN (12:29)
[2023-05-01] MEDS ORDERED: Lorazepam 2 MG/ML VIAL SLOW IVP SCH (13:45)
[2023-05-01] MEDS: HumaLOG 300 UNITS/3 ML VIAL SC PRN (18:10)
[2023-05-01 18:13] LABS: #Basophils 0.1 thou/uL (0.0-0.2); #Eosinphils 0.2 thou/uL (0.0-0.7); #Monocytes 0.6 thou/uL (0.11-0.59); #Neutrophils 5.4 thou/uL (1.40-6.50); %Basophils 0.7 % (0.0-1.0); %Eosinophils 3.1 % (0.0-10.0); %Lymphocytes 17.5 % (21.0-51.0); %Monocytes 7.3 % (0.0-10.0); %Neutrophils 71.1 % (42.0-75.0); Hematocrit 38.8 % (42.0-52.0); Hemoglobin 12.5 g/dL (14.0-18.0); Mean Corpuscular HGB CONC 32.2 g/dL (32.0-36.0); Mean Corpuscular Hemoglobin 28.5 pg (27.0-31.0); Mean Corpuscular Volume 88.4 fl (78.0-98.0); Platelet Count 182 10x3/uL (130-400); Red Blood Cell (RBC) Count 4.39 mill/uL (4.70-6.10); White Blood Cell (WBC) Count 7.5 10x3/uL (4.8-10.8)
[2023-05-01 18:32] LABS: Hemoglobin A1c 7.8 % (4.0-6.0)
[2023-05-01 18:35] LABS: ALT (SGPT) 18 U/L (8-55); AST (SGOT) 18 U/L (5-34); Albumin 4.1 g/dL (3.4-4.8); Alkaline Phosphatase 86 U/L (40-110); Bilirubin, Direct 0.1 mg/dL (0.1-0.3); Bilirubin, Total 0.3 mg/dL (0.2-1.2); Protein, Total 6.5 g/dL (5.8-8.1)
[2023-05-01 18:36] LABS: Anion Gap 14 mmol/L (10-20); BUN (Urea Nitrogen) 31 mg/dL (8.4-25.7); Calc. Creatinine Clearance 43 mL/min (70-130); Calcium 9.1 mg/dL (7.8-10.44); Carbon Dioxide 19 mmol/L (23-31); Cardiac Risk 7.3 (Less than 4.5); Chloride 109 mmol/L (98-107); Cholesterol 248 mg/dl (< 200 Desired); Estimated GFR 50; Glucose 235 mg/dL (83-110); HDL Cholesterol 34 mg/dL (>60 Neg Risk); Magnesium 1.9 mg/dL (1.6-2.6); Sodium 137 mmol/L (136-145); Triglycerides 495 mg/dL (Less than 150)
[2023-05-01] MEDS: Glimepiride 2 MG TAB PO SCH (20:16)
[2023-05-01] MEDS ORDERED: Magnesium 2 GM/50 ML(in water) 2 GM in Premix Bag 1 BAG IVPB SCH (21:00)
[2023-05-01] MEDS: hydrALAZINE 20 MG/ML VIAL SLOW IVP PRN (21:11)
[2023-05-02 03:59] LABS: #Eosinphils 0.3 thou/uL (0.0-0.7); #Monocytes 0.7 thou/uL (0.11-0.59); #Neutrophils 6.1 thou/uL (1.40-6.50); %Basophils 0.5 % (0.0-1.0); %Lymphocytes 17.6 % (21.0-51.0); %Monocytes 8.1 % (0.0-10.0); %Neutrophils 70.5 % (42.0-75.0); Hematocrit 38.2 % (42.0-52.0); Hemoglobin 12.6 g/dL (14.0-18.0); Mean Corpuscular Hemoglobin 28.1 pg (27.0-31.0); Mean Platelet Volume 10.1 fL (7.4-10.4); Platelet Count 158 10x3/uL (130-400); RBC Distribution Width 13.9 % (11.5-14.5); Red Blood Cell (RBC) Count 4.48 mill/uL (4.70-6.10); White Blood Cell (WBC) Count 8.7 10x3/uL (4.8-10.8)
[2023-05-02 04:05] LABS: Mean Corpuscular Volume 85.3 fl (78.0-98.0)
[2023-05-02 05:03] LABS: Anion Gap 12 mmol/L (10-20); BUN (Urea Nitrogen) 29 mg/dL (8.4-25.7); Calc. Creatinine Clearance 44 mL/min (70-130); Calcium 9.2 mg/dL (7.8-10.44); Carbon Dioxide 17 mmol/L (23-31); Chloride 112 mmol/L (98-107); Estimated GFR 53; Glucose 120 mg/dL (83-110); Magnesium 2.5 mg/dL (1.6-2.6); Potassium 4.9 mmol/L (3.5-5.1); Sodium 136 mmol/L (136-145)
[2023-05-02] MEDS: hydrALAZINE 20 MG/ML VIAL SLOW IVP PRN (06:13)
[2023-05-02] MEDS: Lisinopril 10 MG TAB PO SCH (08:27)
[2023-05-02] MEDS: Glimepiride 4 MG TAB PO SCH (08:27)
[2023-05-02] MEDS: Famotidine/PF 20 mg/2ml Vial SLOW IVP SCH (08:27)
[2023-05-02] MEDS ORDERED: Iopamidol-370 76% 500 ML MDV (1 ML CHARGE) ONE (08:55)
[2023-05-02] MEDS: HumaLOG 300 UNITS/3 ML VIAL SC PRN ×2 (17:42→20:48)
[2023-05-02] MEDS: Sodium Chloride 0.9% 1,000 ML IV SCH ×2 (17:42→20:43)
[2023-05-02] MEDS: Glimepiride 2 MG TAB PO SCH (20:43)
[2023-05-03 08:28] LABS: #Basophils 0.1 thou/uL (0.0-0.2); #Eosinphils 0.4 thou/uL (0.0-0.7); #Monocytes 0.7 thou/uL (0.11-0.59); #Neutrophils 5.1 thou/uL (1.40-6.50); %Basophils 0.8 % (0.0-1.0); %Eosinophils 4.7 % (0.0-10.0); %Lymphocytes 18.7 % (21.0-51.0); %Monocytes 8.7 % (0.0-10.0); %Neutrophils 66.8 % (42.0-75.0); Hematocrit 39.3 % (42.0-52.0); Hemoglobin 12.4 g/dL (14.0-18.0); Mean Corpuscular HGB CONC 31.6 g/dL (32.0-36.0); Mean Corpuscular Hemoglobin 28.2 pg (27.0-31.0); Mean Corpuscular Volume 89.3 fl (78.0-98.0); Mean Platelet Volume 10.2 fL (7.4-10.4); Platelet Count 173 10x3/uL (130-400); RBC Distribution Width 14.6 % (11.5-14.5); White Blood Cell (WBC) Count 7.6 10x3/uL (4.8-10.8)
[2023-05-03 08:53] LABS: Anion Gap 12 mmol/L (10-20); BUN (Urea Nitrogen) 28 mg/dL (8.4-25.7); Calc. Creatinine Clearance 35 mL/min (70-130); Calcium 9.4 mg/dL (7.8-10.44); Carbon Dioxide 21 mmol/L (23-31); Chloride 111 mmol/L (98-107); Estimated GFR 41; Glucose 148 mg/dL (83-110); Magnesium 1.9 mg/dL (1.6-2.6); Potassium 4.4 mmol/L (3.5-5.1); Sodium 140 mmol/L (136-145)
[2023-05-03] MEDS: Lisinopril 10 MG TAB PO SCH (09:15)
[2023-05-03] MEDS: Aspirin 81 mg Enteric Coated Tablet PO SCH (09:15)
[2023-05-03] MEDS: Fenofibrate Nanocrystallized 145 MG TAB PO SCH (09:15)
[2023-05-03] MEDS: Glimepiride 4 MG TAB PO SCH (09:15)
[2023-05-03] MEDS: Clopidogrel Bisulfate 75 MG TAB PO SCH (09:17)
[2023-05-03] MEDS: Famotidine/PF 20 mg/2ml Vial SLOW IVP SCH (09:17)
[2023-05-03] MEDS ORDERED: Magnesium 2 GM/50 ML(in water) 2 GM in Premix Bag 1 BAG IVPB SCH (10:00)
[2023-05-03] MEDS: HumaLOG 300 UNITS/3 ML VIAL SC PRN ×2 (11:21→16:33)
[2023-05-03] MEDS: Sodium Chloride 0.9% 1,000 ML IV SCH ×2 (18:36→18:45)
[2023-05-03] MEDS: Glimepiride 2 MG TAB PO SCH (21:35)
[2023-05-04] MEDS: Sodium Chloride 0.9% 1,000 ML IV SCH ×3 (02:35→22:10)
[2023-05-04 02:48] LABS: #Basophils 0.1 thou/uL (0.0-0.2); #Eosinphils 0.4 thou/uL (0.0-0.7); #Monocytes 0.7 thou/uL (0.11-0.59); #Neutrophils 4.9 thou/uL (1.40-6.50); %Basophils 0.7 % (0.0-1.0); %Eosinophils 5.8 % (0.0-10.0); %Lymphocytes 18.6 % (21.0-51.0); %Monocytes 8.9 % (0.0-10.0); %Neutrophils 65.7 % (42.0-75.0); Hematocrit 35.6 % (42.0-52.0); Hemoglobin 11.8 g/dL (14.0-18.0); Mean Corpuscular HGB CONC 33.1 g/dL (32.0-36.0); Mean Corpuscular Hemoglobin 28.4 pg (27.0-31.0); Mean Platelet Volume 9.9 fL (7.4-10.4); Platelet Count 163 10x3/uL (130-400); RBC Distribution Width 14.4 % (11.5-14.5); Red Blood Cell (RBC) Count 4.15 mill/uL (4.70-6.10); White Blood Cell (WBC) Count 7.4 10x3/uL (4.8-10.8)
[2023-05-04 02:56] LABS: Mean Corpuscular Volume 85.8 fl (78.0-98.0)
[2023-05-04 03:19] LABS: Anion Gap 12 mmol/L (10-20); BUN (Urea Nitrogen) 32 mg/dL (8.4-25.7); Calc. Creatinine Clearance 39 mL/min (70-130); Calcium 9.2 mg/dL (7.8-10.44); Carbon Dioxide 18 mmol/L (23-31); Chloride 113 mmol/L (98-107); Estimated GFR 47; Glucose 137 mg/dL (83-110); Magnesium 2.1 mg/dL (1.6-2.6); Potassium 4.5 mmol/L (3.5-5.1); Sodium 138 mmol/L (136-145)
[2023-05-04] MEDS: Famotidine/PF 20 mg/2ml Vial SLOW IVP SCH (09:18)
[2023-05-04] MEDS ORDERED: Clindamycin/D5W 600 MG in Premix Bag 1 BAG IVPB SCH (10:00)
[2023-05-04] MEDS ORDERED: CEFAZOLIN 2 GM in Sodium Chloride 0.9% 100 ML IVPB SCH (10:00)
[2023-05-04] MEDS ORDERED: Bupivacaine PF 0.5% 30 ML VIAL ONE (10:36)
[2023-05-04] MEDS ORDERED: Protamine Sulfate 50 MG/5 ML VIAL ONE (10:36)
[2023-05-04] MEDS ORDERED: Heparin 5,000 UNITS/ML VIAL ONE (10:36)
[2023-05-04] MEDS ORDERED: Fentanyl 250 MCG/5 ML VIAL ONE (10:44)
[2023-05-04] MEDS ORDERED: Rocuronium Bromide 10 MG/ML (10ML VIAL) ONE (11:31)
[2023-05-04] MEDS ORDERED: PROPOFOL 200 MG/20 ML VIAL ONE (11:31)
[2023-05-04] MEDS ORDERED: Ondansetron PF 4 MG/2 ML Vial ONE (11:31)
[2023-05-04] MEDS ORDERED: SUGAMMADEX SODIUM 200 MG/2 ML VIAL ONE (12:39)
[2023-05-04] MEDS ORDERED: Nitroglycerin 50 MG/250 ML BOT 250 ML ONE (13:03)
[2023-05-04] MEDS ORDERED: hydrALAZINE 20 MG/ML VIAL SLOW IVP PRN (13:04)
[2023-05-04] MEDS ORDERED: niCARdipine 25 MG in Sodium Chloride 0.9% 250 ML 250 ML IVPB PRN (13:07)
[2023-05-04] MEDS ORDERED: Phenylephrine 40 MG in Sodium Chloride 0.9% 250 ML 250 ML IVPB SCH (13:15)
[2023-05-04] MEDS ORDERED: Nitroglycerin 50 MG/250 ML BOT 250 ML IVPB SCH (13:15)
[2023-05-04] MEDS: Lisinopril 10 MG TAB PO SCH (14:38)
[2023-05-04] MEDS: Glimepiride 4 MG TAB PO SCH (14:39)
[2023-05-04] MEDS: Fenofibrate Nanocrystallized 145 MG TAB PO SCH (14:39)
[2023-05-04] MEDS: Clopidogrel Bisulfate 75 MG TAB PO SCH (14:39)
[2023-05-04] MEDS: Aspirin 81 mg Enteric Coated Tablet PO SCH (14:39)
[2023-05-04] MEDS: Labetalol HCl 100 MG/20 ML VIAL SLOW IVP PRN ×2 (16:19→22:10)
[2023-05-04] MEDS: Clindamycin/D5W 600 MG in Premix Bag 1 BAG IVPB SCH (18:17)
[2023-05-04] MEDS: hydrALAZINE 20 MG/ML VIAL SLOW IVP PRN (19:17)
[2023-05-04] MEDS: Glimepiride 2 MG TAB PO SCH (20:31)
[2023-05-04] MEDS ORDERED: fentaNYL 50 mcg/mL 1 mL Vial SLOW IVP SCH (23:15)
[2023-05-05] MEDS ORDERED: Metoclopramide HCl 10 MG/2 ML VIAL IVP SCH (02:00)
[2023-05-05] MEDS: Labetalol HCl 100 MG/20 ML VIAL SLOW IVP PRN ×2 (02:01→03:59)
[2023-05-05] MEDS: Clindamycin/D5W 600 MG in Premix Bag 1 BAG IVPB SCH ×2 (02:59→11:35)
[2023-05-05] MEDS: HumaLOG 300 UNITS/3 ML VIAL SC PRN (05:46)
[2023-05-05 07:15] LABS: #Monocytes 0.7 thou/uL (0.11-0.59); #Neutrophils 9.5 thou/uL (1.40-6.50); %Basophils 0.4 % (0.0-1.0); %Lymphocytes 7.5 % (21.0-51.0); %Monocytes 6.1 % (0.0-10.0); %Neutrophils 85.5 % (42.0-75.0); Hematocrit 34.9 % (42.0-52.0); Hemoglobin 11.2 g/dL (14.0-18.0); Mean Corpuscular HGB CONC 32.1 g/dL (32.0-36.0); Mean Corpuscular Hemoglobin 28.2 pg (27.0-31.0); Mean Corpuscular Volume 87.9 fl (78.0-98.0); Mean Platelet Volume 10.1 fL (7.4-10.4); Platelet Count 203 10x3/uL (130-400); RBC Distribution Width 14.3 % (11.5-14.5); Red Blood Cell (RBC) Count 3.97 mill/uL (4.70-6.10); White Blood Cell (WBC) Count 11.1 10x3/uL (4.8-10.8)
[2023-05-05 07:38] LABS: Anion Gap 14 mmol/L (10-20); BUN (Urea Nitrogen) 24 mg/dL (8.4-25.7); Calc. Creatinine Clearance 40 mL/min (70-130); Calcium 9.2 mg/dL (7.8-10.44); Carbon Dioxide 19 mmol/L (23-31); Chloride 108 mmol/L (98-107); Estimated GFR 48; Glucose 193 mg/dL (83-110); Magnesium 1.6 mg/dL (1.6-2.6); Potassium 4.9 mmol/L (3.5-5.1); Sodium 136 mmol/L (136-145)
[2023-05-05] MEDS ORDERED: Magnesium 2 GM/50 ML(in water) 2 GM in Premix Bag 1 BAG IVPB SCH (09:00)
[2023-05-05] MEDS: Glimepiride 4 MG TAB PO SCH (09:18)
[2023-05-05] MEDS: Fenofibrate Nanocrystallized 145 MG TAB PO SCH (09:18)
[2023-05-05] MEDS: Clopidogrel Bisulfate 75 MG TAB PO SCH (09:18)
[2023-05-05] MEDS: Lisinopril 20 MG TAB PO SCH (09:19)
[2023-05-05] MEDS: Aspirin 81 mg Enteric Coated Tablet PO SCH (09:19)
[2023-05-05] MEDS: Metoprolol Tartrate 25 MG TAB PO SCH ×2 (09:19→20:00)
[2023-05-05] MEDS: Famotidine/PF 20 mg/2ml Vial SLOW IVP SCH (09:23)
[2023-05-05] MEDS ORDERED: Iopamidol-370 76% 500 ML MDV (1 ML CHARGE) ONE (10:13)
[2023-05-05 10:24] LABS: Actual Bicarbonate (HCO3a) 18.8 mEq/L (22-28); Analyzer IN Cardio OR; Base Excess (BEa) -5.2 mEq/L (-2.0 to +3.0); CO2 Tension 31.5 mmHg (35.0-45.0); Carboxyhemoglobin (COHb) 0.3 gm% (0.0-3.0); Hematocrit-ABG 33 % (42.0-52.0); Hemoglobin (Hb) 11.1 g/dL (14.0-18.0); O2 Tension (PaO2), arterial 369.1 mmHg (> 60.0); pH, Arterial 7.393 (7.35-7.45)
[2023-05-05] MEDS: Sodium Chloride 0.9% 1,000 ML IV SCH (11:44)
[2023-05-05] MEDS ORDERED: Sodium Chloride 0.9% 1,000 ML IV SCH (12:30)
[2023-05-05] MEDS ORDERED: Sodium Bicarbonate 75 MEQ in Dextrose 5% in Water 1,000 ML IV SCH (13:00)
[2023-05-05] MEDS ORDERED: hydrOXYzine 10 MG TAB PO PRN (16:12)
[2023-05-05] MEDS ORDERED: rOPINIRole HCl 0.25 MG TAB PO PRN (16:56)
[2023-05-05] MEDS ORDERED: rOPINIRole HCl 0.5 MG TAB PO SCH (17:00)
[2023-05-05] MEDS ORDERED: rOPINIRole HCl 0.5 MG TAB PO PRN (17:32)
[2023-05-05 17:58] LABS: Bacteria/HPF None Seen HPF (None Seen); Bilirubin Negative (Negative); Blood, Urine 3+ (Negative); CAUTI Indications for Culture Alt mental st,lethar; Clarity Clear (Clear); Glucose, Urine (Dipstick) 100 mg/dL (Negative); Ketone, Urine Negative (Negative); Leukocyte Negative Leu/uL (Negative); Nitrite Negative (Negative); Protein, Urine (Dipstick) 30 mg/dL (Neg-Trace); RBC/HPF 21-50 HPF (0-3); Specific Gravity, Urine 1.038 (1.002-1.036); Squamous Epithelial None Seen HPF (0-3); Urobilinogen Normal mg/dL (Less than 2); WBC/HPF 0-3 HPF (0-3)
[2023-05-05 18:02] LABS: Urine Culture Reflex No No
[2023-05-05] MEDS: hydrOXYzine 10 MG TAB PO SCH (19:54)
[2023-05-05] MEDS: hydrALAZINE 25 MG TAB PO SCH (20:00)
[2023-05-05] MEDS: Glimepiride 2 MG TAB PO SCH (20:01)
[2023-05-05] MEDS ORDERED: Sterile Water 10 ML VIAL FS PRN (21:30)
[2023-05-05] MEDS ORDERED: OLANZapine 10 MG VIAL IM SCH (21:30)
[2023-05-05] MEDS ORDERED: QUEtiapine 25 MG TAB PO SCH (23:15)
[2023-05-06] MEDS ORDERED: Dexmedetomidine In 0.9 % NaCl 100 ML IVPB SCH (00:15)
[2023-05-06] MEDS ORDERED: Dexmedetomidine 400 MCG, Admixture Fee 1 EACH in Sodium Chloride 0.9% 96 ML IVPB SCH (00:15)
[2023-05-06] MEDS ORDERED: Dextrose 10% in Water 250 ML IV SCH (04:45)
[2023-05-06 04:55] LABS: #Basophils 0.1 thou/uL (0.0-0.2); #Eosinphils 0.1 thou/uL (0.0-0.7); #Monocytes 0.9 thou/uL (0.11-0.59); #Neutrophils 5.3 thou/uL (1.40-6.50); %Basophils 0.7 % (0.0-1.0); %Eosinophils 0.8 % (0.0-10.0); %Lymphocytes 18.2 % (21.0-51.0); %Monocytes 11.2 % (0.0-10.0); %Neutrophils 68.8 % (42.0-75.0); Hematocrit 32.1 % (42.0-52.0); Hemoglobin 10.7 g/dL (14.0-18.0); Mean Corpuscular HGB CONC 33.3 g/dL (32.0-36.0); Mean Corpuscular Hemoglobin 28.3 pg (27.0-31.0); Mean Platelet Volume 10.1 fL (7.4-10.4); Platelet Count 165 10x3/uL (130-400); Red Blood Cell (RBC) Count 3.78 mill/uL (4.70-6.10); White Blood Cell (WBC) Count 7.7 10x3/uL (4.8-10.8)
[2023-05-06 05:10] LABS: Mean Corpuscular Volume 84.9 fl (78.0-98.0)
[2023-05-06 05:16] LABS: Anion Gap 13 mmol/L (10-20); BUN (Urea Nitrogen) 24 mg/dL (8.4-25.7); Calc. Creatinine Clearance 39 mL/min (70-130); Calcium 9.2 mg/dL (7.8-10.44); Carbon Dioxide 22 mmol/L (23-31); Chloride 107 mmol/L (98-107); Estimated GFR 47; Glucose 74 mg/dL (83-110); Magnesium 2.1 mg/dL (1.6-2.6); Potassium 3.9 mmol/L (3.5-5.1); Sodium 138 mmol/L (136-145)
[2023-05-06] MEDS: Clopidogrel Bisulfate 75 MG TAB PO SCH (10:17)
[2023-05-06] MEDS: Aspirin 81 mg Enteric Coated Tablet PO SCH (10:17)
[2023-05-06] MEDS: Fenofibrate Nanocrystallized 145 MG TAB PO SCH (10:17)
[2023-05-06] MEDS: hydrALAZINE 25 MG TAB PO SCH ×2 (10:18→20:59)
[2023-05-06] MEDS: Glimepiride 4 MG TAB PO SCH (10:18)
[2023-05-06] MEDS: Lisinopril 20 MG TAB PO SCH (10:20)
[2023-05-06] MEDS: Metoprolol Tartrate 25 MG TAB PO SCH ×2 (10:22→20:59)
[2023-05-06] MEDS: Labetalol HCl 100 MG/20 ML VIAL SLOW IVP PRN (17:10)
[2023-05-06] MEDS: HumaLOG 300 UNITS/3 ML VIAL SC PRN ×2 (17:12→21:51)
[2023-05-06] MEDS: Acetaminophen 325 MG TAB PO PRN ×2 (18:33→23:56)
[2023-05-06] MEDS: hydrOXYzine 10 MG TAB PO SCH (20:59)
[2023-05-06] MEDS: Glimepiride 2 MG TAB PO SCH (20:59)
[2023-05-06] MEDS: hydrALAZINE 20 MG/ML VIAL SLOW IVP PRN (23:56)
[2023-05-07 06:22] LABS: #Monocytes 1.3 thou/uL (0.11-0.59); #Neutrophils 9.1 thou/uL (1.40-6.50); %Basophils 0.3 % (0.0-1.0); %Eosinophils 0.2 % (0.0-10.0); %Lymphocytes 10.6 % (21.0-51.0); %Monocytes 11.3 % (0.0-10.0); %Neutrophils 77.2 % (42.0-75.0); Hematocrit 34.3 % (42.0-52.0); Hemoglobin 11.3 g/dL (14.0-18.0); Mean Corpuscular HGB CONC 32.9 g/dL (32.0-36.0); Mean Corpuscular Hemoglobin 28.5 pg (27.0-31.0); Mean Corpuscular Volume 86.4 fl (78.0-98.0); Mean Platelet Volume 10.2 fL (7.4-10.4); Platelet Count 186 10x3/uL (130-400); Red Blood Cell (RBC) Count 3.97 mill/uL (4.70-6.10); White Blood Cell (WBC) Count 11.7 10x3/uL (4.8-10.8)
[2023-05-07 06:46] LABS: Anion Gap 13 mmol/L (10-20); BUN (Urea Nitrogen) 32 mg/dL (8.4-25.7); Calc. Creatinine Clearance 34 mL/min (70-130); Calcium 9.5 mg/dL (7.8-10.44); Carbon Dioxide 23 mmol/L (23-31); Chloride 105 mmol/L (98-107); Estimated GFR 41; Glucose 101 mg/dL (83-110); Magnesium 2.6 mg/dL (1.6-2.6); Potassium 4.1 mmol/L (3.5-5.1); Sodium 137 mmol/L (136-145)
[2023-05-07] MEDS ORDERED: Electrolyte Replacement Protocol FS PRN (07:00)
[2023-05-07] MEDS: Sodium Chloride 0.9% 1,000 ML IV SCH ×2 (09:09→20:28)
[2023-05-07] MEDS: Aspirin 81 mg Enteric Coated Tablet PO SCH (09:10)
[2023-05-07] MEDS: Amlodipine 10 MG TAB PO SCH (09:11)
[2023-05-07] MEDS: Glimepiride 4 MG TAB PO SCH (09:11)
[2023-05-07] MEDS: Fenofibrate Nanocrystallized 145 MG TAB PO SCH (09:12)
[2023-05-07] MEDS: hydrALAZINE 25 MG TAB PO SCH ×2 (09:12→20:23)
[2023-05-07] MEDS: Lisinopril 20 MG TAB PO SCH (09:12)
[2023-05-07] MEDS: Metoprolol Tartrate 25 MG TAB PO SCH ×2 (09:12→20:23)
[2023-05-07] MEDS: Clopidogrel Bisulfate 75 MG TAB PO SCH (09:12)
[2023-05-07] MEDS: Ondansetron PF 4 MG/2 ML Vial IVP PRN (14:02)
[2023-05-07] MEDS ORDERED: Promethazine HCl 12.5 MG in Sodium Chloride 0.9% 50 ML IVPB SCH (17:00)
[2023-05-07] MEDS ORDERED: Promethazine HCl 25 MG/ML VIAL IVPB SCH (17:00)
[2023-05-07 17:03] LABS: SARS-CoV-2 NAA Rapid Test Not Detected (NotDetected)
[2023-05-07] MEDS: Glimepiride 2 MG TAB PO SCH (20:23)
[2023-05-07] MEDS: hydrOXYzine 10 MG TAB PO SCH (20:23)
[2023-05-08 05:54] LABS: Magnesium 2.1 mg/dL (1.6-2.6)
[2023-05-08] MEDS: Amlodipine 10 MG TAB PO SCH (09:08)
[2023-05-08] MEDS: Clopidogrel Bisulfate 75 MG TAB PO SCH (09:08)
[2023-05-08] MEDS: Metoprolol Tartrate 25 MG TAB PO SCH ×2 (09:08→20:24)
[2023-05-08] MEDS: hydrALAZINE 25 MG TAB PO SCH ×3 (09:08→20:25)
[2023-05-08] MEDS: Aspirin 81 mg Enteric Coated Tablet PO SCH (09:08)
[2023-05-08] MEDS: Glimepiride 4 MG TAB PO SCH (09:08)
[2023-05-08] MEDS: Lisinopril 20 MG TAB PO SCH (09:09)
[2023-05-08] MEDS: Fenofibrate Nanocrystallized 145 MG TAB PO SCH (09:09)
[2023-05-08] MEDS: Ondansetron PF 4 MG/2 ML Vial IVP PRN ×2 (09:17→21:00)
[2023-05-08] MEDS: HumaLOG 300 UNITS/3 ML VIAL SC PRN (18:52)
[2023-05-08] MEDS: Glimepiride 2 MG TAB PO SCH (20:26)
[2023-05-08] MEDS: hydrOXYzine 10 MG TAB PO SCH (20:27)
[2023-05-09] MEDS: Ondansetron PF 4 MG/2 ML Vial IVP PRN ×3 (05:04→19:47)
[2023-05-09 05:52] LABS: Magnesium 2.1 mg/dL (1.6-2.6)
[2023-05-09] MEDS: Amlodipine 10 MG TAB PO SCH (09:36)
[2023-05-09] MEDS: Fenofibrate Nanocrystallized 145 MG TAB PO SCH (09:36)
[2023-05-09] MEDS: Aspirin 81 mg Enteric Coated Tablet PO SCH (09:36)
[2023-05-09] MEDS: Clopidogrel Bisulfate 75 MG TAB PO SCH (09:36)
[2023-05-09] MEDS: Glimepiride 4 MG TAB PO SCH (09:36)
[2023-05-09] MEDS: hydrALAZINE 25 MG TAB PO SCH ×3 (09:37→20:34)
[2023-05-09] MEDS: Metoprolol Tartrate 25 MG TAB PO SCH ×2 (09:37→20:34)
[2023-05-09] MEDS: Lisinopril 20 MG TAB PO SCH (09:49)
[2023-05-09] MEDS: Senokot S 8.6-50 MG TAB PO PRN (12:15)
[2023-05-09] MEDS ORDERED: Polyethylene Glycol 3350 17 GM Packet PO SCH (12:45)
[2023-05-09] MEDS: Glimepiride 2 MG TAB PO SCH (20:34)
[2023-05-09] MEDS: hydrOXYzine 10 MG TAB PO SCH (20:34)
[2023-05-09] MEDS: Senokot S 8.6-50 MG TAB PO SCH (20:34)
[2023-05-09] MEDS: HumaLOG 300 UNITS/3 ML VIAL SC PRN (20:41)
[2023-05-10 05:54] LABS: Anion Gap 11 mmol/L (10-20); BUN (Urea Nitrogen) 36 mg/dL (8.4-25.7); Calc. Creatinine Clearance 43 mL/min (70-130); Calcium 9.5 mg/dL (7.8-10.44); Carbon Dioxide 26 mmol/L (23-31); Chloride 100 mmol/L (98-107); Estimated GFR 49; Glucose 157 mg/dL (83-110); Potassium 4.3 mmol/L (3.5-5.1); Sodium 133 mmol/L (136-145)
[2023-05-10] MEDS: Ondansetron PF 4 MG/2 ML Vial IVP PRN (10:40)
[2023-05-10] MEDS: Polyethylene Glycol 3350 17 GM Packet PO SCH (10:40)
[2023-05-10] MEDS: Glimepiride 4 MG TAB PO SCH (10:40)
[2023-05-10] MEDS: Amlodipine 10 MG TAB PO SCH (10:41)
[2023-05-10] MEDS: Lisinopril 20 MG TAB PO SCH (10:41)
[2023-05-10] MEDS: Metoprolol Tartrate 25 MG TAB PO SCH ×2 (10:41→21:08)
[2023-05-10] MEDS: Aspirin 81 mg Enteric Coated Tablet PO SCH (10:42)
[2023-05-10] MEDS: Senokot S 8.6-50 MG TAB PO SCH ×2 (10:42→21:08)
[2023-05-10] MEDS: Clopidogrel Bisulfate 75 MG TAB PO SCH (10:42)
[2023-05-10] MEDS: hydrALAZINE 25 MG TAB PO SCH ×3 (10:43→21:08)
[2023-05-10] MEDS: Fenofibrate Nanocrystallized 145 MG TAB PO SCH (10:43)
[2023-05-10 12:25] VITALS: BMI 25.5
[2023-05-10] MEDS ORDERED: Milk Of Magnesia 30 ML UDCUP PO PRN (16:53)
[2023-05-10] MEDS: Glimepiride 2 MG TAB PO SCH (21:08)
[2023-05-10] MEDS: HumaLOG 300 UNITS/3 ML VIAL SC PRN (21:13)
[2023-05-10] MEDS: hydrOXYzine 10 MG TAB PO SCH (21:13)
[2023-05-11 01:24] LABS: SARS-CoV-2 NAA Rapid Test DETECTED (NotDetected)
[2023-05-11] MEDS ORDERED: Acetaminophen 650 MG Suppository PR PRN (01:29)
[2023-05-11] MEDS ORDERED: Albuterol 200 PUFF (6.7GM INHALER) INH PRN (01:29)
[2023-05-11] MEDS ORDERED: Benzonatate 100 MG CAP PO PRN (01:29)
[2023-05-11 05:33] LABS: Anion Gap 12 mmol/L (10-20); BUN (Urea Nitrogen) 36 mg/dL (8.4-25.7); Calc. Creatinine Clearance 38 mL/min (70-130); Carbon Dioxide 28 mmol/L (23-31); Chloride 99 mmol/L (98-107); Estimated GFR 45; Glucose 94 mg/dL (83-110); Potassium 3.9 mmol/L (3.5-5.1); Sodium 135 mmol/L (136-145)
[2023-05-11] MEDS: hydrALAZINE 25 MG TAB PO SCH ×3 (10:17→20:34)
[2023-05-11] MEDS: Senokot S 8.6-50 MG TAB PO SCH ×2 (10:17→20:34)
[2023-05-11] MEDS: Lisinopril 20 MG TAB PO SCH (10:17)
[2023-05-11] MEDS: Aspirin 81 mg Enteric Coated Tablet PO SCH (10:17)
[2023-05-11] MEDS: Metoprolol Tartrate 25 MG TAB PO SCH ×2 (10:17→20:34)
[2023-05-11] MEDS: Glimepiride 4 MG TAB PO SCH (10:17)
[2023-05-11] MEDS: Fenofibrate Nanocrystallized 145 MG TAB PO SCH (10:18)
[2023-05-11] MEDS: Clopidogrel Bisulfate 75 MG TAB PO SCH (10:18)
[2023-05-11] MEDS: Amlodipine 10 MG TAB PO SCH (10:18)
[2023-05-11] MEDS: Polyethylene Glycol 3350 17 GM Packet PO SCH (10:19)
[2023-05-11] MEDS ORDERED: Polyethylene Glycol 3350 17 GM Packet PO PRN (15:26)
[2023-05-11] MEDS ORDERED: Bisacodyl 10 MG SUPP PR PRN (15:26)
[2023-05-11] MEDS: hydrOXYzine 10 MG TAB PO SCH (20:34)
[2023-05-11] MEDS: Glimepiride 2 MG TAB PO SCH (20:34)
[2023-05-12 05:41] LABS: Anion Gap 11 mmol/L (10-20); BUN (Urea Nitrogen) 33 mg/dL (8.4-25.7); Calc. Creatinine Clearance 34 mL/min (70-130); Calcium 9.1 mg/dL (7.8-10.44); Carbon Dioxide 26 mmol/L (23-31); Chloride 99 mmol/L (98-107); Estimated GFR 40; Glucose 72 mg/dL (83-110); Potassium 3.9 mmol/L (3.5-5.1); Sodium 132 mmol/L (136-145)
[2023-05-12] MEDS: Senokot S 8.6-50 MG TAB PO SCH (09:30)
[2023-05-12] MEDS: Polyethylene Glycol 3350 17 GM Packet PO SCH (09:30)
[2023-05-12] MEDS: Aspirin 81 mg Enteric Coated Tablet PO SCH (09:33)
[2023-05-12] MEDS: Clopidogrel Bisulfate 75 MG TAB PO SCH (09:33)
[2023-05-12] MEDS: Fenofibrate Nanocrystallized 145 MG TAB PO SCH (09:35)
[2023-05-12] MEDS: Lisinopril 20 MG TAB PO SCH (09:43)
[2023-05-12] MEDS: Metoprolol Tartrate 25 MG TAB PO SCH (09:45)
[2023-05-12] MEDS: hydrALAZINE 25 MG TAB PO SCH ×2 (09:46→14:36)
[2023-05-12] MEDS: Amlodipine 10 MG TAB PO SCH (09:46)
[2023-05-12 12:12] VITALS: TEMP 97
[2023-05-12 14:37] VITALS: BP 101/45
== END 2023-05-12 14:58 | DRG 34 ==
LOC: ERS 15:54 → SUATTDRO 15:54 → CCU 17:08 → 2SE 05-06 22:14
PROVIDERS: ADMIT Family Medicine; ATTEND Hospitalist
PROC: 037J3DZ Dilation of Left Common Carotid Artery with Intraluminal Device, Percutaneous Approach (ICD-10-PCS; principal; 2023-05-04)
PROC: 4A033R1 Measurement of Arterial Saturation, Peripheral, Percutaneous Approach (ICD-10-PCS; 2023-05-04)
DX: I63.232 Cerebral infarction due to unspecified occlusion or stenosis of left carotid arteries (principal); U07.1 COVID-19; E87.20 Acidosis, unspecified; I69.951 Hemiplegia and hemiparesis following unspecified cerebrovascular disease affecting right dominant side; N17.9 Acute kidney failure, unspecified; K56.7 Ileus, unspecified; M19.90 Unspecified osteoarthritis, unspecified site; E78.5 Hyperlipidemia, unspecified; E11.65 Type 2 diabetes mellitus with hyperglycemia; Z88.8 Allergy status to other drugs, medicaments and biological substances; Z79.899 Other long term (current) drug therapy; Z79.84 Long term (current) use of oral hypoglycemic drugs; Z96.653 Presence of artificial knee joint, bilateral; Z79.4 Long term (current) use of insulin; E11.22 Type 2 diabetes mellitus with diabetic chronic kidney disease; I12.9 Hypertensive chronic kidney disease with stage 1 through stage 4 chronic kidney disease, or unspecified chronic kidney disease; N18.30 Chronic kidney disease, stage 3 unspecified; K59.00 Constipation, unspecified; Z92.82 Status post administration of tPA (rtPA) in a different facility within the last 24 hours prior to admission to current facility; R29.701 NIHSS score 1
CPT/HCPCS: 36415; 36416; 70450; 70496; 70498; 70544; 70547; 70551; 71045; 74018; 80048; 80053; 80061; 80076; 81001; 82805; 83036; 83735; 84443; 84484; 85025; 85610; 85730; 86850; 86900; 86901; 93005; 93306; 93880; 94760; 96374; 96375; C1758; C1769; C1876; C1884; J0360; J1644; J1815; J2060; J2405; J2550; J2704; J2720; J2765; J3010; J3101; J3475; J3490; J7050; J7070; Q9967; S0020; S0028; U0002

== ENCOUNTER 2023-11-30 10:30 | Emergency (ER) | payer MEDICARE ==
[~2023-11-30 10:30] MED LIST changes: -Iopamidol 370 76% 100 ML VIAL ONE; +Iopamidol-370 76% 500 ML MDV (1 ML CHARGE) ONE
[2023-11-30 10:58] LABS: #Basophils 0.04 10x3/uL (0.0-0.2); %Basophils 0.4 % (0.0-1.0); %Eosinophils 0.5 % (0.0-10.0); %Lymphocytes 14.3 % (21.0-51.0); %Monocytes 4.6 % (0.0-10.0); %Neutrophils 79.8 % (42.0-75.0); Hematocrit 42.2 % (42.0-52.0); Hemoglobin 13.7 g/dL (14.0-18.0); Mean Corpuscular HGB CONC 32.5 g/dL (32.0-36.0); Mean Corpuscular Hemoglobin 27.7 pg (27.0-31.0); Mean Corpuscular Volume 85.3 fL (78.0-98.0); Mean Platelet Volume 9.8 fL (7.4-10.4); Platelet Count 231 10x3/uL (130-400); RBC Distribution Width 14.6 % (11.5-14.5); Red Blood Cell (RBC) Count 4.95 mill/uL (4.70-6.10)
[2023-11-30 11:16] LABS: ALT (SGPT) 26 U/L (8-55); AST (SGOT) 25 U/L (5-34); Albumin 4.2 g/dL (3.4-4.8); Alkaline Phosphatase 84 U/L (40-110); Anion Gap 16 mmol/L (10-20); BUN (Urea Nitrogen) 44 mg/dL (8.4-25.7); Bilirubin, Total 0.5 mg/dL (0.2-1.2); Calc. Creatinine Clearance 0 mL/min (70-130); Calcium 9.4 mg/dL (7.8-10.44); Carbon Dioxide 21 mmol/L (23-31); Chloride 106 mmol/L (98-107); Estimated GFR 32; Globulin 2.7 g/dL (2.4-3.5); Glucose 259 mg/dL (83-110); Lipase 76 U/L (8-78); Potassium 4.9 mmol/L (3.5-5.1); Protein, Total 6.9 g/dL (5.8-8.1); Sodium 138 mmol/L (136-145)
[2023-11-30] MEDS ORDERED: Morphine 4 MG/ML VIAL ONE (13:07)
[2023-11-30] MEDS ORDERED: Ondansetron PF 4 MG/2 ML Vial ONE (13:07)
[2023-11-30 13:26] LABS: Bacteria/HPF None Seen HPF (None Seen); Bilirubin Negative (Negative); Blood, Urine 1+ (Negative); CAUTI Indications for Culture Pelvic or flank pain; Clarity Clear (Clear); Glucose, Urine (Dipstick) Greater than 1000 mg/dL (Negative); Ketone, Urine Trace mg/dL (Negative); Leukocyte Negative Leu/uL (Negative); Nitrite Negative (Negative); Protein, Urine (Dipstick) Negative (Neg-Trace); Specific Gravity, Urine 1.023 (1.002-1.036); Squamous Epithelial None Seen HPF (0-3); Urobilinogen Normal mg/dL (Less than 2); WBC/HPF None Seen HPF (0-3)
[2023-11-30 13:27] LABS: Urine Culture Reflex No No
== END 2023-11-30 15:16 | disposition home or self-care (01) ==
LOC: ERS 10:30
DX: N13.2 Hydronephrosis with renal and ureteral calculous obstruction (principal); E11.9 Type 2 diabetes mellitus without complications; Z79.84 Long term (current) use of oral hypoglycemic drugs; R03.0 Elevated blood-pressure reading, without diagnosis of hypertension
CPT/HCPCS: 36415; 74177; 80053; 81001; 83690; 85025; 93005; 96374; 96375; J2270; J2405; Q9967

== ENCOUNTER 2024-06-18 06:11 | Day surgery (SDC) | payer MEDICARE ==
[2024-06-15 12:19] VITALS: BMI 22.4
[2024-06-18 07:13] LABS: #Basophils 0.04 10x3/uL (0.0-0.2); %Basophils 0.7 % (0.0-1.0); %Eosinophils 3.1 % (0.0-10.0); %Lymphocytes 21.5 % (21.0-51.0); %Monocytes 9.6 % (0.0-10.0); %Neutrophils 64.8 % (42.0-75.0); Hematocrit 38.9 % (42.0-52.0); Hemoglobin 12.5 g/dL (14.0-18.0); Mean Corpuscular HGB CONC 32.1 g/dL (32.0-36.0); Mean Platelet Volume 9.3 fL (7.4-10.4); Platelet Count 209 10x3/uL (130-400); RBC Distribution Width 15.5 % (11.5-14.5); Red Blood Cell (RBC) Count 4.47 mill/uL (4.70-6.10)
[2024-06-18 07:35] LABS: PTT 24.1 sec (22.9-36.1); Prothrombin Time 12.9 sec (12.0-14.7)
[2024-06-18 07:38] LABS: Anion Gap 12 mmol/L (10-20); BUN (Urea Nitrogen) 35 mg/dL (8.4-25.7); Calc. Creatinine Clearance 30 mL/min (70-130); Calcium 9.1 mg/dL (7.8-10.44); Carbon Dioxide 22 mmol/L (23-31); Chloride 111 mmol/L (98-107); Estimated GFR 37; Glucose 142 mg/dL (83-110); Potassium 4.7 mmol/L (3.5-5.1); Sodium 140 mmol/L (136-145)
[2024-06-18] MEDS ORDERED: Lidocaine 1% PF 5 ML VIAL ONE (08:56)
[2024-06-18] MEDS ORDERED: Glycopyrrolate 0.2 MG/ML 5 ML SYRINGE ONE (08:56)
[2024-06-18] MEDS ORDERED: PROPOFOL 200 MG/20 ML VIAL ONE (08:56)
[2024-06-18] MEDS ORDERED: Labetalol HCl 100 MG/20 ML VIAL ONE (08:56)
== END 2024-06-18 10:20 | disposition home or self-care (01) ==
LOC: SDC 06:11
PROVIDERS: ATTEND Internal Medicine Cardiovascular Disease
PROC: B246ZZ4 Ultrasonography of Right and Left Heart, Transesophageal (ICD-10-PCS; principal; 2024-06-18)
DX: I48.0 Paroxysmal atrial fibrillation (principal); I08.3 Combined rheumatic disorders of mitral, aortic and tricuspid valves; Z88.8 Allergy status to other drugs, medicaments and biological substances; Z88.1 Allergy status to other antibiotic agents; Z79.02 Long term (current) use of antithrombotics/antiplatelets; Z79.899 Other long term (current) drug therapy
CPT/HCPCS: 80048; 85025; 85610; 85730; 93312; J2704; 36415

== ENCOUNTER 2025-04-25 10:31 | Outpatient (CLI) | payer OTHER | END 2025-04-25 10:32 | disposition home or self-care (01) | LOC: ULT 10:31 | PROVIDERS: ATTEND Urology | DX: N20.0 Calculus of kidney (principal); N40.1 Benign prostatic hyperplasia with lower urinary tract symptoms | CPT/HCPCS: 76770 ==